=== PATIENT | male | born 1950 | race Caucasian/White ===

== ENCOUNTER 2019-09-30 20:55 | Observation (INO) | payer MEDICARE, SELFPAY ==
[2019-09-30] VITALS (7 sets, daily range): BP systolic 162–201; BP diastolic 87–112; PULSE 83–97; RESP 16–20; TEMP 36–36.1; O2SAT 96–100; BMI 25.6
--- NOTE | ~2019-09-30 | XR_ITS ---
EXAMINATION: XR chest 2V EXAM DATE: 09/30/2019 21:47 INDICATION: Midsternal chest pain and high blood pressure. TECHNIQUE: Frontal and lateral projections of the chest obtained and reviewed. Comparison is made to prior examination from 02/13/2019. FINDINGS: Sternotomy wires are present without findings to suggest sternal dehiscence. The lungs are clear. There are no pleural effusions. The cardiomediastinal silhouette is within normal limits. There is no pneumothorax suspected. There are mild bony degenerative changes. Cervical fusion hardwa re. IMPRESSION: No acute cardiopulmonary findings. Reviewed, dictated and finalized at location [facility]. [facility]
--- NOTE | 2019-09-30 21:10 | ED.GENADULT ---
HPI - General Adult General Chief complaint: Unspecified Stated complaint: high bp Time Seen by Provider: 09/30/19 21:10 Source: patient and family () Mode of arrival: ambulatory Limitations: no limitations History of Present Illness HPI narrative: A 69 y/o male presents to the ED with c/o high BP. Per , pt's BP has become increasingly higher over the past couple weeks and was measured to be 199/129 at his pain management appointment this morning. Pt's BP was 171/116 on 09/25/19, 166/95 the previous week, and 170/105 the week before that. Pt normally checks his BP everyday. Pt is on Carvedilol and Clonidine and manages his BP with Dr. Kaba. Pt reports aching and nonradiating midsternal CP today that alleviated with Nitro. Pt notes that he ran out of his pain medication a couple days ago. He denies SOB, dizziness, numbness/tingling, vision changes, hearing changes, diarrhea, dysuria, and recently starting any new medications. Associated symptoms: chest pain (midsternal (resolved)) Treatments prior to arrival: other (Nitro) Related Data Home Medications Medication Instructions Recorded Confirmed atorvastatin 10 mg PO DAILY 09/30/19 09/30/19 carvedilol 12.5 mg PO BID 09/30/19 09/30/19 cholecalciferol (vitamin D3) 1,000 unit PO DAILY 09/30/19 09/30/19 cilostazol 100 mg PO BID 09/30/19 09/30/19 clonidine HCl 0.1 mg PO BID 09/30/19 09/30/19 clopidogrel 75 mg PO DAILY 09/30/19 09/30/19 escitalopram oxalate 10 mg PO DAILY 09/30/19 09/30/19 fenofibrate 160 mg PO DAILY 09/30/19 09/30/19 fluticasone propion-salmeterol 2 inh INHALATION PRN PRN 09/30/19 09/30/19 [Advair Diskus] gabapentin 600 mg PO DAILY 09/30/19 10/01/19 hydrocodone-acetaminophen 1 tablet PO Q6H PRN 09/30/19 10/01/19 levothyroxine 0.025 mcg PO DAILY 09/30/19 10/01/19 pantoprazole 40 mg PO DAILY 09/30/19 10/01/19 ranitidine HCl 150 mg PO DAILY 09/30/19 10/01/19 Allergies Allergy/AdvReac Type Severity Reaction Status Date / Time erythromycin base Allergy Unknown Hives Verified 03/31/19 14:06 Sulfa (Sulfonamide Allergy Rash Verified 09/30/19 21:17 Antibiotics) Review of Systems Review of Systems: All systems reviewed & are unremarkable except as noted in HPI and below Eyes: Eyes: Denies change in vision ENT: Comments: Denies: hearing changes Cardiovascular: Cardiovascular: Reports chest pain (midsternal (resolved)) Comments: Reports: high BP Respiratory: Respiratory: Denies dyspnea Gastrointestinal: Gastrointestinal: Denies diarrhea Genitourinary: Genitourinary: Denies dysuria Neurologic: Denies dizziness and Denies numbness PMFSH Past Medical History Medical History Afib Anxiety Chronic kidney disease, stage 4 (severe) COPD (chronic obstructive pulmonary disease) 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 DDD (degenerative disc disease) Dementia Depression Foot fracture bilateral GERD (gastroesophageal reflux disease) GI bleed Hepatitis C HTN (hypertension) Hyperlipidemia Hypothyroid Kidney stone Peripheral neuropathy Pneumonia Seizure Sleep apnea Stage 3 chronic kidney disease Surgical History Surgical History History of appendectomy Hx of fusion of cervical spine Family History Family History Father Diabetes mellitus Hypertension Family history of cardiovascular disease Mother Hypertension Family history of cardiovascular disease Sibling Family history of cardiovascular disease Social History Social History Smoking packs per day: 1 Smoking cigarettes per day: 20.0 Years smoked: 50 Smoking pack-years: 50.00 Smoking status: Current every day smoker Tobacco type: cigarettes Second hand tobacco smoke exposure: No Alcohol intake: never Substance use: never Substance use ty
--- NOTE | 2019-09-30 21:14 | ECG_ITS ---
Measurements Intervals [place] Rate: 89 P: 60 [place]: 158 QRS: -15 QRSD: 114 T: 56 QT: 356 QTc: 434 Interpretive Statements SINUS RHYTHM INTRAVENTRICULAR CONDUCTION DELAY LEFT VENTRICULAR HYPERTROPHY AND ST-T CHANGE BASELINE WANDER- I, II, AVR, AVL, AVF, V5-V6 BORDERLINE ECG Electronically Signed On 10-01-2019 7:44:47 GENERAL REPAIR MECHANIC by Magdiel Edwards D.O.
[2019-09-30 21:32] LABS: Basophils Absolute Auto 0.1 K/mm3 (0.0-0.1); Basophils Percent Auto 1.1 % (0.2-1.2); Eosinophils Absolute Auto 0.1 K/mm3 (0-0.3); Eosinophils Percent Auto 1.8 % (0-4.4); Hematocrit 40.8 % (42.0-52.0); Hemoglobin 12.9 g/dL (14.0-18.0); Immature Granulocyte Absolute 0.05 K/mm3 (0.00-0.031); Immature Granulocyte Percent A 0.8 % (0-0.5); Lymphocytes Absolute Auto 2.07 K/mm3 (0.9-3.2); Lymphocytes Percent Auto 31.2 % (18.3-44.2); Mean Corpuscular HGB Conc 31.6 g/dl (32-36); Mean Corpuscular Hemoglobin 29.8 pg (26-34); Mean Corpuscular Volume 94.2 fl (80-100); Mean Platelet Volume 11.9 fl (7.4-10.4); Monocytes Absolute Auto 0.8 K/mm3 (0.1-0.6); Monocytes Percent Auto 11.8 % (2.6-8.5); Neutrophils Absolute Auto 3.5 K/mm3 (1.3-6.7); Neutrophils Percent Auto 53.3 % (45.5-73.1); Platelet Count Result 258 k/mm3 (150-375); Red Blood Count 4.33 M/mm3 (4.6-6.20); Red Cell Distribution Width 16.9 % (11.5-14.5); White Blood Count 6.6 K/mm3 (4.5-10.0)
[2019-09-30] MEDS: hydrALAZINE HCL 20 MG/ML VIAL 10 MG IV PUSH (21:32)
[2019-09-30 21:41] LABS: INR 0.9; Prothrombin Time 11.7 Seconds (11.1-14.7)
[2019-09-30 21:42] LABS: Partial Thromboplastin Time 31.5 SECONDS (22.3-36.8)
[2019-09-30 21:43] LABS: Blood Urea Nitrogen 37 mg/dL (9-20); Calcium 9.2 mg/dL (8.4-10.2); Carbon Dioxide 22 mmol/L (22-30); Chloride 107 mmol/L (98-107); Estimated Glomerular Filt Rate 27; Glucose 108 mg/dL (75-110); Potassium 4.5 mmol/L (3.4-5.0); Sodium 139 mmol/L (137-145)
[2019-09-30 21:54] LABS: Troponin I < 0.012 ng/mL (0.000-0.034)
--- NOTE | 2019-09-30 23:57 | PM.IMHP ---
H&P: HPI History of Present Illness Chief complaint: chest pain,uncontrolled hypertension Narrative: This is a pleasant 69-year-old male with known history of paroxysmal atrial fibrillation on chronic Eliquis therapy, coronary artery disease status post CABG x3 status post 3. Stents who presented to the hospital with a complaint of elevated blood pressure and chest pain that started this evening. The patient mentions that he has had elevated blood pressure for the past week and that he has been compliant with his home blood pressure medications. Tonight the patient was laying on the couch watching television when suddenly he started to experience midsternal chest pain that did not radiate anywhere. He did not have any associated symptoms of nausea, vomiting, diaphoresis, shortness of breath, or dizziness. Patient's chest pain lasted for about 45 minutes before went away he did not take any medications for it. After dinner the patient did experience 2 hours of global headache which resolved on its own. On arrival to the emergency room the patient was found to be severely hypertensive and was also complaining of back pain. Patient has not had any recurrence of his chest pain. On further questioning he does admit to me that he ran out of his pain medications for his chronic back pain on Saturday. The patient recently had to drive for a and mentions he had to take extra doses of his usual home pain medication because of the extra back pain that he suffered during his drive. The patient does admit to smoking 1 pack of cigarettes daily and continues to do so despite having coronary artery bypass grafting done. The patient's last cardiac angiogram was over 5 years ago. Tonight he denies any other significant symptoms and is only complaining of ongoing back pain. The patient is known to see Dr. Kaba for Cardiology. Patient denies shortness of breath, fevers, chills, cough, abdominal pain, dizziness, dysuria, hematuria, diarrhea, rectal bleeding, or worsening lower extremity swelling. No other complaints at this time. In the ER tonight the patient has been treated with IV hydralazine and continues to be hypertensive. We been asked admit the patient to the hospital for cardiac rule out and his uncontrolled hypertension. Review of Systems Review of Systems: All systems reviewed & are unremarkable except as noted in HPI and below PMFSH Past Medical History Medical History Afib Anxiety Chronic kidney disease, stage 4 (severe) COPD (chronic obstructive pulmonary disease) 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 DDD (degenerative disc disease) Dementia Depression Foot fracture bilateral GERD (gastroesophageal reflux disease) GI bleed Hepatitis C HTN (hypertension) Hyperlipidemia Hypothyroid Kidney stone Peripheral neuropathy Pneumonia Seizure Sleep apnea Stage 3 chronic kidney disease Surgical History Surgical History History of appendectomy Hx of fusion of cervical spine Family History Family History Father Diabetes mellitus Hypertension Family history of cardiovascular disease Mother Hypertension Family history of cardiovascular disease Sibling Family history of cardiovascular disease Social History Social History Smoking packs per day: 1 Smoking cigarettes per day: 20.0 Years smoked: 50 Smoking pack-years: 50.00 Smoking status: Current every day smoker Tobacco type: cigarettes Second hand tobacco smoke exposure: No Alcohol intake: never Substance use: never Substance use type: does not use Gender identity (if verbalized by the patient): Male Spiritual care concerns: No Meds Home Medications and Allergies Home Medications Medication Instructions
--- NOTE | 2019-09-30 23:57 | ADMGEN ---
This patient, Jaylan Levy, was admitted to IMU Room 213-01. Patient/family oriented to hospital policies and general routines including ID bracelet, bed and alarms, visiting hours, pain management, procedures, bathroom and other care routines, personal items, smoking policy, room service/diet, and visiting hours. Valuables list has been completed. Information on how to activate the Rapid Response Team has been discussed. Patient/Family are encouraged to report perceived risks to care and to ask questions if they do not understand what they are told or what they should do.
[2019-10-01] VITALS (13 sets, daily range): BP systolic 155–181; BP diastolic 81–99; PULSE 83–105; RESP 18–20; TEMP 36.2–36.7; O2SAT 93–99
--- NOTE | 2019-10-01 | ECHO_ITS ---
Patient Info Name: Jaylan Levy Age: 69 years : 1950 Gender: Male Ht: 68 in Wt: 167 lbs BSA: 1.92 m2 HR: 92 bpm BP: 181 / 91 mmHg Heart Rhythm: Sinus Rhythm Technical Quality: Good Exam Date: 10/01/2019 9:40 AM Exam Location: [facility] Patient Status: Inpatient Admit Date: 09/30/2019 Staff Ordering Physician: Alejandro Oakes MD Hardwood Faller: Tim Mauricio, MAREK, RT Attending Provider: Jaylan Schreiber MD Referring Physician: Violette LEMON; Exam Type: CA echo doppler color flow Study Info Indications R07.89 - Other chest pain Complete two-dimensional, color flow and Doppler transthoracic echocardiogram is performed. Summary 1. Normal left ventricular size with moderate concentric left ventricular hypertrophy. There is moderate hypokinesis of the inferoseptal wall extending to the apex as well as some hypokinesis of the inferolateral wall. Diastolic dysfunction grade 1 is present. Estimated ejection fraction is 55-60%. Global longitudinal strain is-14%, moderately low, consistent with early systolic dysfunction. 2. Abnormal septal motion due to bundle branch block. 3. 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 4. Unable to determine pulmonary artery pressure with this study. 5. NSR. Left Ventricle Normal left ventricular size with moderate concentric left ventricular hypertrophy. There is moderate hypokinesis of the inferoseptal wall extending to the apex as well as some hypokinesis of the inferolateral wall. Diastolic dysfunction grade 1 is present. Estimated ejection fraction is 55-60%. Global longitudinal strain is-14%, moderately low, consistent with early systolic dysfunction. Left ventricular chamber dimension is normal. Left ventricular systolic function is mildly reduced, estimated at 55-60%. There is moderately increased left ventricular wall thickness. Left ventricular septal wall motion is abnormal with septal motion related to bundle branch block. The left ventricular diastolic function is grade I diastolic dysfunction. Global longitudinal strain is moderately elevated at 14 %. Right Ventricle Right ventricular chamber dimension is normal. Right ventricular systolic function is normal. Left Atria Left atrial chamber dimension is mildly enlarged. Right Atria Right atrial chamber dimension is normal. 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 Aortic Valve The aortic valve is trileaflet. There is mild aortic valve sclerosis. There is no aortic valve stenosis. There is no aortic valve regurgitation. Pulmonic Valve The pulmonic valve is normal. There is no pulmonic valve stenosis. There is trace pulmonic regurgitation. Mitral Valve The mitral valve has normal leaflets. There is no mitral valve stenosis. There is no mitral valve regurgitation. Tricuspid Valve The tricuspid valve leaflets are normal. There is no significant tricuspid valve stenosis. There is mild tricuspid valve regurgitation. No pulmonary hypertension, estimated pulmonary arterial systolic pressure is Empty. Pericardium/Pleural The pericardium appears normal. There is no pericardial effusion. Inferior Vena Cava Normal inferior vena cava with >50% collapse upon inspiration consistent with Empty right atrial pressure, Empty. Aorta The aortic root size at the sinus of Valsalva is normal. The prox ascending aorta size is normal. There is mild aortic atherosclerosis. Left Ventricular Ou
[2019-10-01] MEDS: hydrALAZINE HCL 20 MG/ML VIAL 10 MG IV PUSH (00:27)
[2019-10-01 00:58] LABS: Troponin I < 0.012 ng/mL (0.000-0.034)
[2019-10-01 04:12] LABS: Basophils Absolute Auto 0.1 K/mm3 (0.0-0.1); Eosinophils Absolute Auto 0.1 K/mm3 (0-0.3); Eosinophils Percent Auto 1.7 % (0-4.4); Hematocrit 41.4 % (42.0-52.0); Hemoglobin 13.3 g/dL (14.0-18.0); Immature Granulocyte Absolute 0.06 K/mm3 (0.00-0.031); Immature Granulocyte Percent A 0.8 % (0-0.5); Lymphocytes Absolute Auto 2.45 K/mm3 (0.9-3.2); Lymphocytes Percent Auto 33.8 % (18.3-44.2); Mean Corpuscular HGB Conc 32.1 g/dl (32-36); Mean Corpuscular Hemoglobin 29.6 pg (26-34); Mean Corpuscular Volume 92.2 fl (80-100); Monocytes Absolute Auto 0.8 K/mm3 (0.1-0.6); Monocytes Percent Auto 10.5 % (2.6-8.5); Neutrophils Absolute Auto 3.8 K/mm3 (1.3-6.7); Neutrophils Percent Auto 52.2 % (45.5-73.1); Platelet Count Result 254 k/mm3 (150-375); Red Blood Count 4.49 M/mm3 (4.6-6.20); Red Cell Distribution Width 16.8 % (11.5-14.5); White Blood Count 7.3 K/mm3 (4.5-10.0)
[2019-10-01 04:26] LABS: Blood Urea Nitrogen 32 mg/dL (9-20); Calcium 9.6 mg/dL (8.4-10.2); Carbon Dioxide 22 mmol/L (22-30); Chloride 106 mmol/L (98-107); Estimated CRCL calculation 28 ml/min; Estimated Glomerular Filt Rate 29; Glucose 96 mg/dL (75-110); Magnesium 1.7 mg/dL (1.6-2.3); Potassium 3.9 mmol/L (3.4-5.0); Sodium 139 mmol/L (137-145)
[2019-10-01 04:35] LABS: Troponin I 0.013 ng/mL (0.000-0.034)
[2019-10-01] MEDS: LEVOTHYROXINE SODIUM 25 MCG TABLET PO (05:16)
[2019-10-01] MEDS: LABETALOL HCL INJ 100 MG/20 ML VIAL 10 MG IV PUSH (05:16)
[2019-10-01 05:43] LABS: Add Urine Microscopic? NO; Appearance Urine Clear (Clear); Bilirubin Urine Negative (Negative); Blood Urine Negative (Negative); Color Urine Colorless (Yellow); Glucose Urine UA Negative (Negative); Ketones Urine Negative (Negative); Leukocyte Esterase Ur Negative LEU/UL (NEGATIVE); Nitrate Urine Negative (Negative); Protein Urine Negative (Negative); Specific Grav Ur 1.011 (1.001-1.035); Urobilinogen Urine Negative mg/dL (<2.0)
[2019-10-01 05:51] LABS: Amphetamine Screen Urine Negative (Negative); Barbiturate Screen Urine Negative (Negative); Benzodiazepines Screen Urine Negative (Negative); Cannabinoid Screen Urine Negative (Negative); Cocaine Screen Urine Negative (Negative); Methadone Screen Urine Negative (Negative); Opiate Screen Urine Positive (Negative); Phencyclidine Screen Urine Negative (Negative)
[2019-10-01] MEDS: CILOSTAZOL 100 MG TABLET PO (07:38)
[2019-10-01 09:13] LABS: D Dimer 0.72 ug/mL (<0.48)
[2019-10-01] MEDS: PANTOPRAZOLE 40 MG TABLET PO (09:16)
[2019-10-01] MEDS: CLOPIDOGREL BISULFATE 75 MG TABLET PO (09:16)
[2019-10-01] MEDS: ATORVASTATIN 10 MG TABLET PO (09:16)
[2019-10-01] MEDS: FAMOTIDINE 20 MG TABLET PO (09:16)
[2019-10-01] MEDS: CHOLECALCIFEROL 1,000 UNIT TABLET 1000 UNITS PO (09:16)
[2019-10-01] MEDS: GABAPENTIN 300 MG CAPSULE 600 MG PO (09:17)
[2019-10-01] MEDS: ESCITALOPRAM OXALATE 10 MG TABLET PO (09:17)
[2019-10-01] MEDS: CLONIDINE HCL 0.1 MG TABLET PO (09:17)
[2019-10-01] MEDS: carvediloL 12.5 MG TABLET PO (09:18)
--- NOTE | 2019-10-01 09:55 | PM.DS ---
DS: Diagnosis Admitting Diagnosis Admitting Diagnosis: Hypertensive urgency DS: Summary Time Spent with Patient Time attestation: Total time spent providing and/or coordinating discharge services: DS: Data Data Completed and Pending Labs on day of discharge: Labs from last 24 hours 10/01/19 10/01/19 10/01/19 08:53 05:15 05:15 WBC RBC Hgb Hct MCV MCH MCHC RDW Plt Count MPV Immature Gran % (Auto) Neut % (Auto) Lymph % (Auto) [place] % (Auto) Eos % (Auto) Baso % (Auto) Lymph # (Auto) [place] # (Auto) Eos # (Auto) Baso # (Auto) Abs Immat Gran (auto) Absolute Neuts (auto) Absolute Nucleated RBC Nucleated RBC % PT INR APTT D-Dimer 0.72 H Sodium Potassium Chloride Carbon Dioxide BUN Creatinine Estim Creat Clear Calc Estimated GFR Glucose Calcium Magnesium Troponin I Urine Color Colorless Urine Appearance Clear Urine pH 6.0 Ur Specific [place] 1.011 Urine Protein Negative Urine Glucose (UA) Negative Urine Ketones Negative Ur Blood (Man) Negative Urine Nitrate Negative Urine Bilirubin Negative Urine Urobilinogen Negative Ur Leukocyte Esterase Negative Urine Opiates Screen Positive A Urine Methadone Screen Negative Ur Barbiturates Screen Negative Ur Phencyclidine Scrn Negative Ur Amphetamine Screen Negative U Benzodiazepines Scrn Negative Urine Cocaine Screen Negative U Cannabinoids Screen Negative 10/01/19 10/01/19 10/01/19 03:37 03:37 03:37 WBC 7.3 RBC 4.49 L Hgb 13.3 L Hct 41.4 L MCV 92.2 MCH 29.6 MCHC 32.1 RDW 16.8 H Plt Count 254 MPV 12.0 H Immature Gran % (Auto) 0.8 H Neut % (Auto) 52.2 Lymph % (Auto) 33.8 [place] % (Auto) 10.5 H Eos % (Auto) 1.7 Baso % (Auto) 1.0 Lymph # (Auto) 2.45 [place] # (Auto) 0.8 H Eos # (Auto) 0.1 Baso # (Auto) 0.1 Abs Immat Gran (auto) 0.06 H Absolute Neuts (auto) 3.8 Absolute Nucleated RBC 0.0 Nucleated RBC % 0.0 PT INR APTT D-Dimer Sodium 139 Potassium 3.9 Chloride 106 Carbon Dioxide 22 BUN 32 H Creatinine 2.30 H Estim Creat Clear Calc 28 Estimated GFR 29 L Glucose 96 Calcium 9.6 Magnesium 1.7 Troponin I 0.013 Urine Color Urine Appearance Urine pH Ur Specific [place] Urine Protein Urine Glucose (UA) Urine Ketones Ur Blood (Man) Urine Nitrate Urine Bilirubin Urine Urobilinogen Ur Leukocyte Esterase Urine Opiates Screen Urine Methadone Screen Ur Barbiturates Screen Ur Phencyclidine Scrn Ur Amphetamine Screen U Benzodiazepines Scrn Urine Cocaine Screen U Cannabinoids Screen 10/01/19 09/30/19 09/30/19 00:26 21:27 21:27 WBC RBC Hgb Hct MCV MCH MCHC RDW Plt Count MPV Immature Gran % (Auto) Neut % (Auto) Lymph % (Auto) [place] % (Auto) Eos % (Auto) Baso % (Auto) Lymph # (Auto) [place] # (Auto) Eos # (Auto) Baso # (Auto) Abs Immat Gran (auto) Absolute Neuts (auto) Absolute Nucleated RBC Nucleated RBC % PT 11.7 INR 0.9 APTT 31.5 D-Dimer Sodium 139 Potassium 4.5 Chloride 107 Carbon Dioxide 22 BUN 37 H Creatinine 2.40 H Estim Creat Clear Calc Not Reportable Estimated GFR 27 L Glucose 108 Calcium 9.2 Magnesium Troponin I < 0.012 < 0.012 Urine Color Urine Appearance Urine pH Ur Specific [place] Urine Protein Urine Glucose (UA) Urine Ketones Ur Blood (Man) Urine Nitrate Urine Bilirubin Urine Urobilinogen Ur Leukocyte Esterase Urine Opiates Screen Urine Methadone Screen Ur Barbiturates Screen Ur Phencyclidine Scrn Ur Amphetamine Screen U Benzodiazepines Scrn Urine Cocaine Screen U Cannabino
--- NOTE | 2019-10-01 15:55 | PM.IMPN ---
Subjective Date/time seen: 10/01/19 15:55 Interval history: Admitted 09/30 with hypertensive urgency and chest pain and headache. BP improved with hydralazine, labetalol, and analgesics. He was out of his norco 10-325 for 3 days. He had used extra after a long round trip drive. He denied palpitations, sob, edema, dizziness, sweats. No further chest pain. Review of Systems Review of Systems: All systems reviewed & are unremarkable except as noted in HPI and below Exam Narrative: Exam Narrative: HEENT: EOMI, PERRL, pharyngeal mucosa pink and intact NECK: No JVD CHEST: Clear to auscultation. Normal effort. HEART: NL S1/S2, regular, no murmur ABDOMEN: BS+, soft, nontender, no mass, no bruits EXTREMITIES: No cyanosis, edema, or clubbing NEUROLOGIC: CN intact and symmetric to inspection. MUSCULOSKELETAL: Tone and strength symmetric. PSYCH: Alert. Oriented to person, place, and time. Objective Data Vital Signs Vital Signs: Vital Signs - 24 hr 09/30/19 20:58 09/30/19 21:10 09/30/19 21:15 Temperature 96.8 F L Pulse Rate 84 83 86 Respiratory Rate 16 18 Blood Pressure 184/93 H 201/99 H Pulse Oximetry 100 99 09/30/19 22:01 09/30/19 22:50 09/30/19 23:20 Temperature Pulse Rate 88 94 90 Respiratory Rate 18 18 18 Blood Pressure 162/88 H 174/87 H 172/89 H Pulse Oximetry 98 99 98 09/30/19 23:45 10/01/19 00:00 10/01/19 01:40 Temperature 96.9 F L 97.1 F L Pulse Rate 97 88 95 Respiratory Rate 20 20 20 Blood Pressure 171/112 H 171/81 H Pulse Oximetry 96 96 93 10/01/19 02:00 10/01/19 03:56 10/01/19 04:00 Temperature 97.6 F Pulse Rate 98 99 99 Respiratory Rate 20 20 Blood Pressure 181/91 H Pulse Oximetry 98 98 10/01/19 05:16 10/01/19 05:40 10/01/19 08:00 Temperature 98.1 F Pulse Rate 98 96 96 Respiratory Rate 18 Blood Pressure 155/94 H Pulse Oximetry 98 10/01/19 09:18 10/01/19 10:00 10/01/19 12:00 Temperature 98 F Pulse Rate 99 105 H 98 Respiratory Rate 18 Blood Pressure 166/99 H Pulse Oximetry 99 Intake/Output Intake/Output: Intake & Output 09/28/19 09/29/19 09/30/19 10/01/19 23:59 23:59 23:59 23:59 Intake Total 440 Output Total 400 Balance 40 Meds/Results Medications: Active Medications Generic Name Dose Route Start Last Admin Trade Name Freq PRN Reason Stop Dose Admin Acetaminophen 650 mg 09/30/19 22:57 Tylenol Tablet PO Q4H PRN Mild Pain (1-3) or Fever Hydrocodone Bitart/Acetaminophen 1 tab 10/01/19 06:18 10/01/19 12:05 [place] 10-325 Mg PO 1 tab Q6H PRN Administration Pain Rated 7-10 Atorvastatin Calcium 10 mg 10/01/19 09:00 10/01/19 09:16 Lipitor PO 10 mg DAILY YASMANI Administration Carvedilol 12.5 mg 10/01/19 09:00 10/01/19 09:18 Coreg PO 12.5 mg Q12HR YASMANI Administration Cilostazol 100 mg 10/01/19 07:30 10/01/19 07:38 Pletal PO 100 mg 0730,1630 YASMANI Administration Clonidine HCl 0.1 mg 10/01/19 09:00 10/01/19 09:17 Catapres PO 0.1 mg BID YASMANI Administration Clopidogrel Bisulfate 75 mg 10/01/19 09:00 10/01/19 09:16 Plavix PO 75 mg DAILY YASMANI Administration Escitalopram Oxalate 10 mg 10/01/19 09:00 10/01/19 09:17 Lexapro PO 10 mg DAILY YASMANI Administration Famotidine 20 mg 10/01/19 09:00 10/01/19 09:16 Pepcid PO 20 mg DAILY YASMANI Administration Gabapentin 600 mg 10/01/19 09:00 10/01/19 09:17 Neurontin PO 600 mg DAILY YASMANI Administration Hydralazine HCl 10 mg 09/30/19 23:37 10/01/19 00:27 Apresoline Hcl Inj IV PUSH 10 mg Q8H PRN Administration see comments Labetalol HCl 10 mg 09/30/19 23:36 10/01/19 05:16 Normodyne Inj IV PUSH 10 mg ONCE PRN Administration see comments Levothyroxine Sodium 25 mcg 10/01/19 06:30 10/01/19 05:16 Synthroid PO 25 mcg DAILY@0630 YASMANI Administration Morphine Sulfate 4 mg 09/30/19 22:57 Morphine Sulfate Inj IV PUSH Q2H PRN Pain Rate
--- NOTE | 2019-10-01 16:04 | PM.DS ---
DS: Diagnosis Admitting Diagnosis Admitting Diagnosis: Hypertensive urgency Discharge Diagnosis (1) Hypertensive urgency: Code(s): I16.0 - Hypertensive urgency Status: Acute Assessment and Plan: Controlled after IV hydralazine and labetalol and analgesics. Home with analgesics and home bp regimen. (2) Chest pain: Qualifiers: Chest pain type: unspecified Qualified Code(s): R07.9 - Chest pain, unspecified Code(s): R07.9 - Chest pain, unspecified Status: Acute Assessment and Plan: Clinically due to hypertensive urgency No ACS He passed a stress test with his cardiology, Dr. Kaba, about 6 months ago. (3) Chronic low back pain: Qualifiers: Back pain laterality: unspecified Sciatica presence: unspecified whether sciatica present Qualified Code(s): M54.5 - Low back pain; G89.29 - Other chronic pain Code(s): M54.5 - Low back pain; G89.29 - Other chronic pain Status: Chronic Assessment and Plan: Needs 5 days of analgesic for home so that he can get refill from pain management Percocet 5-325 q 6h prn. #20 (4) Chronic kidney disease, stage 4 (severe): Code(s): N18.4 - Chronic kidney disease, stage 4 (severe) Status: Chronic Assessment and Plan: Patient's kidney function is likely at baseline. (5) Chronic GERD: Code(s): K21.9 - Gastro-esophageal reflux disease without esophagitis Status: Chronic Assessment and Plan: Continue Protonix. (6) Acquired hypothyroidism: Code(s): E03.9 - Hypothyroidism, unspecified Status: Chronic Assessment and Plan: Continue levothyroxine. (7) PAD (peripheral artery disease): Code(s): I73.9 - Peripheral vascular disease, unspecified Status: Chronic Assessment and Plan: Continue cilostazol. (8) PTSD (post-traumatic stress disorder): Code(s): F43.10 - Post-traumatic stress disorder, unspecified Status: Chronic (9) Paroxysmal atrial fibrillation: Code(s): I48.0 - Paroxysmal atrial fibrillation Status: Chronic Assessment and Plan: Currently in normal sinus rhythm. Continue rate control with beta-radha. Continue Eliquis for anticoagulation. (10) Tobacco dependence: Code(s): F17.200 - Nicotine dependence, unspecified, uncomplicated Status: Chronic Assessment and Plan: He was counseled on smoking cessation during his stay DS: Summary Hospital Course Reason for hospitalization: chest pain, uncontrolled bp Hospital Course: Admitted 09/30 with hypertensive urgency and chest pain and headache. BP improved with hydralazine, labetalol, and analgesics. He was out of his norco 10-325 for 3 days. He had used extra after a long round trip drive. He denied palpitations, sob, edema, dizziness, sweats. No further chest pain. Troponins negative x 3. EKG w/o acute changes. Echo with LVEF 55-50% with grade I diastolic dysfunction. Status at Discharge Functional status at discharge: independent ambulation Overall status at discharge: patient is back to baseline Time Spent with Patient Time attestation: Total time spent providing and/or coordinating discharge services: Time spent: Greater than 30 minutes Exam Narrative: Exam Narrative: HEENT: EOMI, PERRL, pharyngeal mucosa pink and intact NECK: No JVD, adenopathy, or thyromegaly CHEST: Clear to auscultation. Normal effort. HEART: NL S1/S2, regular, no murmur ABDOMEN: BS+, soft, nontender, no mass, no bruits EXTREMITIES: No cyanosis, edema, or clubbing NEUROLOGIC: CN intact and symmetric to inspection. MUSCULOSKELETAL: Tone and strength symmetric. PSYCH: Alert. Oriented to person, place, and time. DS: Data Data Completed and Pending Labs on day of discharge: Labs from last 24 hours 10/01/19 10/01/19 10/01/19 08:53 05:15 05:15 WBC RBC Hgb Hct MCV MCH MCHC RDW Plt Count MPV Immature Gran % (Auto) Neut
== END 2019-10-01 16:45 | disposition home or self-care (01) ==
LOC: ANHED 22:56 → ANHIMU 10-01 02:42
PROVIDERS: Admitting Provider Family Medicine; Emergency Provider Emergency Medicine; PCP Family Medicine; Visit Provider Internal Medicine
DX: I16.0 Hypertensive urgency (principal); I12.9 Hypertensive chronic kidney disease with stage 1 through stage 4 chronic kidney disease, or unspecified chronic kidney disease; N18.4 Chronic kidney disease, stage 4 (severe); M54.5 Low back pain; G89.29 Other chronic pain; K21.9 Gastro-esophageal reflux disease without esophagitis; E03.9 Hypothyroidism, unspecified; I73.9 Peripheral vascular disease, unspecified; F43.10 Post-traumatic stress disorder, unspecified; I48.0 Paroxysmal atrial fibrillation; F17.210 Nicotine dependence, cigarettes, uncomplicated; J44.9 Chronic obstructive pulmonary disease, unspecified; F03.90 Unspecified dementia, unspecified severity, without behavioral disturbance, psychotic disturbance, mood disturbance, and anxiety; G62.9 Polyneuropathy, unspecified; G47.30 Sleep apnea, unspecified; Z79.01 Long term (current) use of anticoagulants; I25.10 Atherosclerotic heart disease of native coronary artery without angina pectoris; Z95.1 Presence of aortocoronary bypass graft; Z95.5 Presence of coronary angioplasty implant and graft; Z98.1 Arthrodesis status
CPT/HCPCS: 36415; 71046; 80048; 80307; 81003; 83735; 84484; 85025; 85380; 85610; 85730; 93005; 93306; 96374; 96375; 96376; 99285; A9270; G0378; J0360

== ENCOUNTER → 2021-08-25 09:20 | Outpatient (CLI) | payer MEDICARE, SELFPAY ==
--- NOTE | ~2021-08-25 | CT_ITS ---
EXAMINATION: CT lung screening DATE: 08/25/2021 09:32 INDICATION: Personal history of nicotine dependence TECHNIQUE: Computed tomography (CT) of the chest was performed without intravenous contrast. The dose -length product was 83.67 mGy-cm. Automated exposure control and iterative reconstruction technique w ere employed. COMPARISON: Chest x-ray dated 09/30/2019 FINDINGS: There are peripheral interstitial infiltrates with interlobular septal thickening bilateral ly, with a pattern consistent with usual interstitial pneumonia. No thoracic lymphadenopathy. There i s atherosclerosis of the aorta and coronary arteries. Status post median sternotomy for CABG. No sign ificant pleural or pericardial effusion. There is a 4 mm right upper lobe nodule, axial image 39. The re is mild emphysema. There is dependent atelectasis. No endobronchial lesions. IMPRESSION: 1. Lung-RADS category 2: Benign appearance or behavior. Continue annual screening with noncontrast lo w-dose chest CT in 12 months. Reviewed, dictated and finalized at location A. AL HEALTH TECHNICIAN IMPRESSION: 1. Lung-RADS category 2: Benign appearance or behavior. Continue annual screeni ng with noncontrast low-dose chest CT in 12 months.
== END ==
PROVIDERS: PCP Nurse Practitioner Family; Visit Provider Nurse Practitioner Family
DX: Z12.2 Encounter for screening for malignant neoplasm of respiratory organs (principal); Z87.891 Personal history of nicotine dependence
CPT/HCPCS: 71271

== ENCOUNTER 2021-09-27 12:22 | Emergency (ER) | payer MEDICARE, SELFPAY | END 2021-09-28 00:40 | disposition left against medical advice (07) | LOC: ANHED 12:43 | PROVIDERS: PCP Nurse Practitioner Family | DX: Z53.21 Procedure and treatment not carried out due to patient leaving prior to being seen by health care provider (principal) | CPT/HCPCS: 99199 ==

== ENCOUNTER 2021-09-29 11:30 | Outpatient (CLI) | payer MEDICARE, SELFPAY ==
[2021-09-29 12:08] LABS: Basophils Absolute Auto 0.1 K/mm3 (0.0-0.1); Basophils Percent Auto 0.7 % (0.2-1.2); Eosinophils Absolute Auto 0.1 K/mm3 (0-0.3); Eosinophils Percent Auto 1.1 % (0-4.4); Hematocrit 41.6 % (42.0-52.0); Hemoglobin 14.1 g/dL (14.0-18.0); Immature Granulocyte Absolute 0.12 K/mm3 (0.00-0.031); Immature Granulocyte Percent A 1.5 % (0-0.5); Lymphocytes Absolute Auto 1.85 K/mm3 (0.9-3.2); Mean Corpuscular HGB Conc 33.9 g/dl (32-36); Mean Corpuscular Hemoglobin 33.7 pg (26-34); Mean Corpuscular Volume 99.3 fl (80-100); Mean Platelet Volume 11.3 fl (7.4-10.4); Monocytes Absolute Auto 0.8 K/mm3 (0.1-0.6); Neutrophils Absolute Auto 5.1 K/mm3 (1.3-6.7); Neutrophils Percent Auto 63.7 % (45.5-73.1); Platelet Count Result 356 k/mm3 (150-375); Red Blood Count 4.19 M/mm3 (4.6-6.20); Red Cell Distribution Width 15.7 % (11.5-14.5)
[2021-09-29 12:14] LABS: Add Urine Microscopic? YES; Appearance Urine Clear (Clear); Bilirubin Urine Negative (Negative); Blood Urine Negative (Negative); Color Urine Yellow (Yellow); Glucose Urine UA Negative (Negative); Ketones Urine Negative (Negative); Leukocyte Esterase Ur Negative LEU/UL (NEGATIVE); Mucus Urine Rare /lpf; Nitrate Urine Negative (Negative); Protein Urine 2+ mg/dL (Negative); RBC Urine 0-2 /hpf (0-2); Specific Grav Ur 1.019 (1.001-1.035); Urobilinogen Urine Negative mg/dL (<2.0); WBC Urine 0-3 /hpf (0-3)
[2021-09-29 12:26] LABS: Alanine Aminotransferase 24 U/L (4-50); Albumin Level 4.6 g/dL (3.5-5.1); Alkaline Phosphatase 91 U/L (38-126); Anion Gap 12 mmol/L (8-16); Aspartate Amino Transferase 64 U/L (17-59); Blood Urea Nitrogen 39 mg/dL (9-20); Calcium 10.2 mg/dL (8.4-10.2); Carbon Dioxide 17 mmol/L (22-30); Chloride 108 mmol/L (98-107); Estimated Glomerular Filt Rate 43; Glucose 116 mg/dL (65-110); Potassium 4.2 mmol/L (3.4-5.0); Sodium 137 mmol/L (137-145)
== END 2021-09-29 11:31 | disposition home or self-care (01) ==
PROVIDERS: PCP Family Medicine; Visit Provider Physician Assistant
DX: E86.0 Dehydration (principal); I13.10 Hypertensive heart and chronic kidney disease without heart failure, with stage 1 through stage 4 chronic kidney disease, or unspecified chronic kidney disease; N18.4 Chronic kidney disease, stage 4 (severe); R53.1 Weakness; R73.01 Impaired fasting glucose
CPT/HCPCS: 36415; 80053; 81001; 84443; 85025; 87086

== ENCOUNTER 2021-10-01 05:03 | Observation (INO) | payer MEDICARE, SELFPAY ==
[2021-10-01] VITALS (26 sets, daily range): BP systolic 68–124; BP diastolic 42–67; PULSE 47–76; RESP 13–20; TEMP 35.5–36.9; O2SAT 98–100; BMI 20.4
--- NOTE | ~2021-10-01 | XR_ITS ---
XR chest 1V portable 10/01/2021 05:47 Indication: Cough Procedure: AP portable chest Comparison: Comparison to multiple prior studies sequentially, with oldest reviewed study dated 07/25. Findings: Status post median sternotomy for CABG. Heart size normal. No focal air space disease, pulm onary edema, pleural effusion or suspected pneumothorax. No acute osseous abnormality. Impression: 1: No acute cardiopulmonary disease. Reviewed, dictated and finalized at location A. SCHOOL VICE PRINCIPAL Impression: 1: No acute cardiopulmonary disease.
--- NOTE | ~2021-10-01 | US_ITS ---
EXAMINATION: US carotid duplex BI DATE: 10/01/2021 13:15 INDICATION: Syncope TECHNIQUE: Grayscale, color Doppler, and pulsed Doppler images of the cervical carotid arteries were obtained. The degree of vessel stenosis is placed in one of the following categories: normal, <50%, 5 0-69%, >=70% but less than near-occlusion, near-occlusion, or total occlusion. Note that percent sten osis relative to normal distal artery lumen diameter is indirectly measured from velocity measurement s as described by Willard, et al. Radiology 2003; 229:340-346. Notes: Normal: Peak systolic velocity <125 centimeters/sec and no plaque <50%. Peak systolic velocity <125 ( EDV <40; ICA/CCA PSV ratio <2.0; used these factors only a tandem lesions or low cardiac output or co ntralateral disease) 50-69 %: PSV 125-230 (EDV 40-100; ratio 2-4) >= 70% but less than near occlusion: PSV greater than 230 (EDV > 100; ratio> 4.0) Near Occlusion: PSV that is variable; markedly narrowed lumen Occlusion: Absent flow on color/spectral Doppler and no lumen on burnett scale. COMPARISON: None. FINDINGS: RIGHT: The right common carotid artery (CCA) peak systolic velocity (PSV) is 91 cm/s. The right internal car otid artery (ICA) PSV is 132 cm/s. The right ICA end-diastolic velocity (EDV) is 14 cm/s. The right I CA/CCA PSV ratio is 1.5. The external carotid artery (ECA) PSV is 164 cm/s. There is antegrade flow i n the right vertebral artery. LEFT: The left CCA PSV is 86 cm/s. The left ICA PSV is 184 cm/s. The left ICA EDV is 22 cm/s. The left ICA/ CCA PSV ratio is 2.1. The ECA PSV is 190 cm/s. There is antegrade flow in the left vertebral artery. IMPRESSION: 1. 50-69% stenosis in the right internal carotid artery by sonographic criteria. 2. 50-69% stenosis in the left internal carotid artery by sonographic criteria. Reviewed, dictated and finalized at location A. RNAL GRINDER IMPRESSION: 1. 50-69% stenosis in the right internal carotid artery by sonographic criteria . 2. 50-69% stenosis in the left internal carotid artery by sonographic criteria.
--- NOTE | ~2021-10-01 | CT_ITS ---
EXAMINATION: CT abdomen pelvis wo con DATE: 10/01/2021 06:09 INDICATION: Generalized abdominal pain TECHNIQUE: Computed tomography (CT) of the head was performed without intravenous contrast. The dose- length product was 299.06 mGy-cm. Automated exposure control and iterative reconstruction technique w ere employed. COMPARISON: CT dated 02/13/2019 FINDINGS: There are mild chronic coarse interstitial infiltrates peripherally in the lung bases. Stat us post median sternotomy for CABG. Heart size normal. No pneumothorax. Small hiatal hernia. No signi ficant pleural or pericardial effusion. Gallbladder is present. There are vascular calcifications thr oughout the abdomen. There is atherosclerosis of the aorta without aneurysm. There is chronic granulo matous disease of the spleen. There is nonobstructive bowel gas pattern. No free air or free fluid. G allbladder is present. Normal appendix. Colonic diverticulosis without evidence for diverticulitis. T here is severe lumbar spondylosis with thoracolumbar levoscoliosis. Chronic compression deformity of T12. No ureteral stones or hydronephrosis. IMPRESSION: 1. No acute abdominal abnormality. Reviewed, dictated and finalized at location A. ERS AND ACQUISITIONS ATTORNEY
--- NOTE | ~2021-10-01 | CT_ITS ---
EXAMINATION: CT brain wo con INDICATION: Transient alteration of awareness COMPARISON: 08/19/2006 TECHNIQUE: Standard unenhanced head CT. The dose-length product (DLP) was 681.00 mGy-cm. The mA was a djusted according to patient size. Iterative reconstruction technique was employed. FINDINGS: There is no acute intraparenchymal hemorrhage. No evidence of mass lesion. No evidence of a cute infarction. There are areas of low attenuation near the right caudate and in the right quiroz ra diata. There is mild periventricular and subcortical hypodensity probably related to small vessel isc hemic disease. There is mild prominence of the sulci and ventricles related to cerebral atrophy. Intr acranial calcified cerebral atherosclerosis is noted. There are no extra-axial collections. There is no mass effect or midline shift. Changes in the globes are likely from ocular lens surgery. The visua lized sinuses and mastoid air cells are well aerated. IMPRESSION: 1. Areas of low attenuation in the right caudate and in the right quiroz radiata which could reflect subacute or chronic infarct. 2. Age related findings. Reviewed, dictated and finalized at location F. RAL LOCATION MANAGER IMPRESSION: 1. Areas of low attenuation in the right caudate and in the right quiroz radiat a which could reflect subacute or chronic infarct. 2. Age related findings.
--- NOTE | 2021-10-01 05:10 | ECG_ITS ---
Measurements Intervals [place] Rate: 54 P: 55 ID: 165 QRS: -9 QRSD: 122 T: 19 QT: 507 QTc: 484 Interpretive Statements SINUS BRADYCARDIA INTRAVENTRICULAR CONDUCTION DELAY DELAYED PRECORDIAL R/S TRANSITION LEFT VENTRICULAR HYPERTROPHY BORDERLINE ST-T WAVE ABNORMALITY- INFERIOR LEADS BASELINE ARTIFACT- I, II, III, AVR, AVL, AVF, V1-V6 BORDERLINE ECG Electronically Signed On 10-01-2021 6:15:33 DIRECTOR GROUP SALES by Magdiel Edwards D.O.
[2021-10-01] MEDS: SODIUM CHLORIDE 0.9% IV 500 ML 999 ML IV CONT (05:38)
[2021-10-01 05:39] LABS: Alanine Aminotransferase 29 U/L (4-50); Albumin Level 3.2 g/dL (3.5-5.1); Alkaline Phosphatase 62 U/L (38-126); Anion Gap 9 mmol/L (8-16); Aspartate Amino Transferase 50 U/L (17-59); Bilirubin,Total 0.8 mg/dL (0.2-1.3); Blood Urea Nitrogen 38 mg/dL (9-20); Calcium 8.7 mg/dL (8.4-10.2); Carbon Dioxide 17 mmol/L (22-30); Chloride 108 mmol/L (98-107); Estimated CRCL calculation 24 ml/min; Estimated Glomerular Filt Rate 26; Glucose 123 mg/dL (65-110); Potassium 3.9 mmol/L (3.4-5.0); Sodium 134 mmol/L (137-145)
[2021-10-01 05:43] LABS: Basophils Absolute Auto 0.1 K/mm3 (0.0-0.1); Basophils Percent Auto 0.9 % (0.2-1.2); Eosinophils Absolute Auto 0.2 K/mm3 (0-0.3); Eosinophils Percent Auto 1.8 % (0-4.4); Hemoglobin 9.8 g/dL (14.0-18.0); Immature Granulocyte Absolute 0.38 K/mm3 (0.00-0.031); Immature Granulocyte Percent A 4.1 % (0-0.5); Immature Platelet Fraction Pct 6.3 % (0.9-11.2); Lymphocytes Absolute Auto 2.17 K/mm3 (0.9-3.2); Lymphocytes Percent Auto 23.6 % (18.3-44.2); Mean Corpuscular HGB Conc 31.6 g/dl (32-36); Mean Corpuscular Hemoglobin 33.4 pg (26-34); Mean Corpuscular Volume 105.8 fl (80-100); Mean Platelet Volume 11.1 fl (7.4-10.4); Monocytes Absolute Auto 1.1 K/mm3 (0.1-0.6); Monocytes Percent Auto 11.6 % (2.6-8.5); Neutrophils Absolute Auto 5.3 K/mm3 (1.3-6.7); Nucleated Red Blood Cells Absolute Auto 0.1 K/mm3 (0.0-0.012); Nucleated Red Blood Cells Perc 0.8 % (0.0-0.2); Platelet Count Result 284 k/mm3 (150-375); Red Blood Count 2.93 M/mm3 (4.6-6.20); Red Cell Distribution Width 15.7 % (11.5-14.5); White Blood Count 9.2 K/mm3 (4.5-10.0)
[2021-10-01 05:48] LABS: Lactic Acid Reflex 1.4 mmol/L (0.7-2.1); Lipase 1910 U/L (23-300); Magnesium 1.8 mg/dL (1.6-2.3)
[2021-10-01 05:52] LABS: Troponin I 0.045 ng/mL (0.000-0.034)
[2021-10-01 05:58] LABS: NT Pro B Type Natriuretic Pept 2790 pg/mL (5-100)
--- NOTE | 2021-10-01 05:58 | PC.NURSE ---
Patient taken to CT via stretcher.
--- NOTE | 2021-10-01 06:27 | ED.GENADULT ---
HPI - General Adult General Chief complaint: Syncope Stated complaint: GLF POSSIBLE UNRESPONSIVE, LOC, 70/40BP, FLU SYMPT Time Seen by Provider: 10/01/21 05:19 History of Present Illness HPI narrative: Patient 71-year-old gentleman who presents the emergency department with chief complaint of near syncope. Patient states that today felt very lightheaded and the briefly passed out. When EMS found to he was hypotensive and was still complaining of being lightheaded upon arrival to the emergency department after receiving approximately 500 mL of normal saline the patient was starting to feel somewhat better and his pressure proved in the 70s to the 90s. Patient reported that over the last week he has been rather sick has had nausea vomiting and diarrhea. The patient states he is just recently started tolerating p.o. intake patient states that he was diagnosed with the flu recently. The patient also reports he has history of congestive heart failure but reports that is not on any diuretic medications. Patient denies blood in the stool or black tarry stool. Related Data Home Medications Medication Instructions Recorded Confirmed cholecalciferol (vitamin D3) 1,000 unit PO DAILY 09/30/19 05/31/20 cilostazol 100 mg PO BID 09/30/19 05/31/20 clopidogrel 75 mg PO DAILY 09/30/19 05/31/20 fluticasone propion-salmeterol 2 inh INHALATION PRN PRN 09/30/19 05/31/20 [Advair Diskus] gabapentin 600 mg PO DAILY 09/30/19 05/31/20 hydrocodone 10 mg-acetaminophen 1 tablet PO Q8H PRN 10/06/19 05/31/20 325 mg tablet methylcellulose 1 % eye drops % EACH EYE 10/06/19 05/31/20 cholecalciferol (vitamin D3) 1,250 1,250 mcg PO MONTHLY 06/28/20 mcg (50,000 unit) capsule Allergies Allergy/AdvReac Type Severity Reaction Status Date / Time erythromycin base Allergy Unknown Hives Verified 10/01/21 05:13 Sulfa (Sulfonamide Allergy Unknown Rash Verified 10/01/21 05:13 Antibiotics) Review of Systems Review of Systems: A 10 system review of systems was completed on the patient and is negative except for what is stated in the HPI. Nursing and ancillary documentation was reviewed. [facility] Past Medical History Medical History Afib Anxiety Chronic kidney disease, stage 4 (severe) COPD (chronic obstructive pulmonary disease) 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 DDD (degenerative disc disease) Dementia Depression Foot fracture bilateral GERD (gastroesophageal reflux disease) GI bleed Hepatitis C HTN (hypertension) Hyperlipidemia Hypothyroid Kidney stone Peripheral neuropathy Pneumonia Seborrheic keratosis Seizure Sleep apnea Stage 3 chronic kidney disease Surgical History Surgical History History of appendectomy History of bypass gastroenterostomy History of endarterectomy femoral - L Hx of fusion of cervical spine Family History Family History Father Diabetes mellitus Hypertension Family history of cardiovascular disease Mother Hypertension Family history of cardiovascular disease Sibling Family history of cardiovascular disease Social History Social History Smoking packs per day: 1 Smoking cigarettes per day: 20.0 Years smoked: 50 Smoking pack-years: 50.00 Smoking status: Current every day smoker Tobacco type: cigarettes Second hand tobacco smoke exposure: No Alcohol intake: never Substance use: never Substance use type: does not use Gender identity (if verbalized by the patient): Male Spiritual care concerns: No Exam Narrative: GENERAL: Well-appearing, well-nourished, and in no acute distress. HEAD: Normocephalic, atraumatic. EYES: PERRLA and EOMI. ENT: Nares clear, no rhinorrhea or epistaxis. Mucous membranes moist.
[2021-10-01 08:16] LABS: SARS-CoV-2 RNA PCR Negative
[2021-10-01] MEDS: SODIUM CHLORIDE 0.9% IV 1,000 ML 125 ML IV CONT ×2 (09:32→17:25)
--- NOTE | 2021-10-01 10:14 | ADMGEN ---
This patient, Jaylan Levy, was admitted to IMU Room 206-02. Patient/family oriented to hospital policies and general routines including ID bracelet, bed and alarms, visiting hours, pain management, procedures, bathroom and other care routines, personal items, smoking policy, room service/diet, and visiting hours. Information on how to activate the Rapid Response Team has been discussed. Patient/Family are encouraged to report perceived risks to care and to ask questions if they do not understand what they are told or what they should do.
[2021-10-01 10:34] LABS: Hematocrit 36.8 % (42.0-52.0)
[2021-10-01 11:01] LABS: Troponin I 0.028 ng/mL (0.000-0.034)
--- NOTE | 2021-10-01 11:16 | PM.IMHP ---
H&P: HPI History of Present Illness Date/Time: 10/01/21 11:16 Chief Complaint: Near syncopal episode Narrative: 71 years old male was admitted through the emergency room with complaints that he was having nausea and diarrhea going on for the past few days. Diarrhea gradually got better and he was able to tolerate p.o. since yesterday. According to the patient after diarrhea he was feeling really weak and he nearly passed out at home. Patient denies any chest pain or shortness of breath. No abdominal pain no nausea no vomiting at present time. No fever, no COVID. Patient denies any complaints at present time. Review of Systems Review of Systems: All systems reviewed & are unremarkable except as noted in HPI and below (the history and physical examination.) PMFSH Past Medical History Medical History Afib Anxiety Chronic kidney disease, stage 4 (severe) COPD (chronic obstructive pulmonary disease) 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 DDD (degenerative disc disease) Dementia Depression Foot fracture bilateral GERD (gastroesophageal reflux disease) GI bleed Hepatitis C HTN (hypertension) Hyperlipidemia Hypothyroid Kidney stone Peripheral neuropathy Pneumonia Seborrheic keratosis Seizure Sleep apnea Stage 3 chronic kidney disease Surgical History Surgical History History of appendectomy History of bypass gastroenterostomy History of endarterectomy femoral - L Hx of fusion of cervical spine Family History Family History Father Diabetes mellitus Hypertension Family history of cardiovascular disease Mother Hypertension Family history of cardiovascular disease Sibling Family history of cardiovascular disease Social History Social History Smoking packs per day: 0.5 Smoking cigarettes per day: 10.0 Years smoked: 50 Smoking pack-years: 25.00 Smoking status: Current every day smoker Tobacco type: cigarettes Second hand tobacco smoke exposure: No Alcohol intake: never Substance use: never Substance use type: does not use Gender identity (if verbalized by the patient): Male Spiritual care concerns: No Meds Home Medications and Allergies Home Medications Medication Instructions Recorded Confirmed Type cilostazol 100 mg PO BID 09/30/19 10/01/21 History clopidogrel 75 mg PO DAILY 09/30/19 10/01/21 History fluticasone propion-salmeterol 2 inh INHALATION PRN PRN 09/30/19 10/01/21 History [Advair Diskus] gabapentin 300 mg PO BID 09/30/19 10/01/21 History hydrocodone 10 mg-acetaminophen 1 tablet PO Q6H PRN 10/06/19 10/01/21 History 325 mg tablet atorvastatin 40 mg tablet 40 mg PO DAILY #90 tablet 05/04/21 10/01/21 Rx pantoprazole 40 mg tablet,delayed 40 mg PO DAILY #90 tablet 05/18/21 10/01/21 Rx release escitalopram oxalate 20 mg tablet 20 mg PO DAILY #90 tablet 08/04/21 10/01/21 Rx lisinopril 40 mg tablet 40 mg PO DAILY #30 tablet 09/06/21 10/01/21 Rx buspirone 7.5 mg tablet 7.5 mg PO BID #180 tablet 09/28/21 10/01/21 Rx clonidine HCl 0.1 mg tablet 0.1 mg PO BID #180 tablet 09/28/21 10/01/21 Rx carvedilol 25 mg PO BID 10/01/21 10/01/21 History cholecalciferol (vitamin D3) 25 mcg PO DAILY 10/01/21 10/01/21 History fenofibrate 160 mg PO DAILY 10/01/21 10/01/21 History levothyroxine 25 mcg PO 0600 10/01/21 10/01/21 History nifedipine 30 mg PO DAILY 10/01/21 10/01/21 History Allergies Allergy/AdvReac Type Severity Reaction Status Date / Time erythromycin base Allergy Unknown Hives Verified 10/01/21 05:13 Sulfa (Sulfonamide Allergy Unknown Rash Verified 10/01/21 05:13 Antibiotics) Vital Signs Vital Signs - 24 hr 10/01/21 05:03 10/01/21 05:13 10/01/21 05:43 Temperature 36.8 C Pulse Rate 57 L 76 53 L Respiratory Rate
[2021-10-01] MEDS: ESCITALOPRAM OXALATE 10 MG TABLET 20 MG PO (13:02)
[2021-10-01] MEDS: carvediloL 25 MG TABLET PO (13:02)
[2021-10-01] MEDS: ATORVASTATIN 40 MG TABLET PO (13:02)
[2021-10-01] MEDS: CHOLECALCIFEROL 1,000 UNITS TABLET 1000 UNITS PO (13:02)
[2021-10-01] MEDS: PANTOPRAZOLE SODIUM IV 40 MG VIAL IV PUSH (13:03)
[2021-10-01] MEDS: FENOFIBRATE 160 MG TABLET PO (13:03)
[2021-10-01 13:25] LABS: Hematocrit 38.5 % (42.0-52.0); Hemoglobin 12.1 g/dL (14.0-18.0)
[2021-10-01 13:43] LABS: Troponin I 0.029 ng/mL (0.000-0.034)
[2021-10-01] MEDS: GABAPENTIN 300 MG CAPSULE PO ×2 (14:39→21:02)
[2021-10-01] MEDS: lisinopriL 20 MG TABLET PO (14:40)
[2021-10-01] MEDS: NIFEdipine 30 MG TAB.ER.24 PO (14:40)
[2021-10-01] MEDS: CLOPIDOGREL BISULFATE 75 MG TABLET PO (14:40)
[2021-10-01] MEDS: cloNIDine HCL 0.1 MG TABLET PO (14:42)
[2021-10-01 15:38] LABS: Add Urine Microscopic? YES; Appearance Urine Clear (Clear); Bacteria Urine Trace /hpf; Bilirubin Urine Negative (Negative); Blood Urine Negative (Negative); Color Urine Yellow (Yellow); Glucose Urine UA Negative (Negative); Ketones Urine Negative (Negative); Leukocyte Esterase Ur Negative LEU/UL (Negative); Mucus Urine Rare /lpf; Nitrate Urine Negative (Negative); Protein Urine 2+ mg/dL (Negative); RBC Urine 0-2 /hpf (0-2); Squamous Epithelial Cell Urine Rare /hpf (Few); WBC Urine 0-3 /hpf
[2021-10-01] MEDS: cilostazoL 100 MG TABLET PO (17:23)
[2021-10-01 20:01] LABS: Hemoglobin 10.2 g/dL (14.0-18.0)
[2021-10-01] MEDS: busPIRone HCL 5 MG TABLET PO (20:57)
[2021-10-01] MEDS: busPIRone HCL 2.5 MG TABLET PO (20:57)
[2021-10-02] VITALS (8 sets, daily range): BP systolic 99–141; BP diastolic 50–62; PULSE 62–98; RESP 16–20; TEMP 36.3–36.8; O2SAT 95–98
--- NOTE | 2021-10-02 | ECHO_ITS ---
Patient Info Name: Jaylan Levy Age: 71 years : 1950 Gender: Male Ht: 70 in Wt: 142 lbs BSA: 1.78 m2 HR: 73 bpm BP: 126 / 59 mmHg Heart Rhythm: Sinus Arrhythmia Technical Quality: Fair Exam Date: 10/02/2021 7:44 AM Exam Location: [facility] Patient Status: Inpatient Admit Date: 10/01/2021 Staff Ordering Physician: Duran Dao MD Superintendent Sales: Sharon Weiss RDCS Attending Provider: Jaylon Cannon MD Referring Physician: Sylwia SOUZA; Exam Type: CA echo doppler color flow Study Info Indications - syncope Complete two-dimensional, color flow and Doppler transthoracic echocardiogram is performed. Summary 1. Complete two-dimensional, color flow and Doppler transthoracic echocardiogram is performed. 2. Left ventricular chamber dimension is normal. 3. There is mild concentric increased left ventricular wall thickness. 4. Left ventricular systolic function is normal, estimated at 55-60%. 5. Left atrial chamber dimension is mildly enlarged. 6. No significant valve abnormalities. Left Ventricle Left ventricular chamber dimension is normal. Left ventricular systolic function is normal, estimated at 55-60%. There is mild concentric increased left ventricular wall thickness. The left ventricular diastolic function is grade I diastolic dysfunction. Right Ventricle Right ventricular chamber dimension is normal. Left Atria Left atrial chamber dimension is mildly enlarged. Right Atria Right atrial chamber dimension is normal. Aortic Valve The aortic valve is trileaflet. Pulmonic Valve The pulmonic valve is not well visualized. Mitral Valve The mitral valve has normal leaflets. Tricuspid Valve The tricuspid valve leaflets are normal. Pericardium/Pleural The pericardium appears normal. Aorta The aortic root size at the sinus of Valsalva is normal. Left Ventricular Outflow Tract Name Value Normal LVOT 2D LVOT Diameter 2.1 cm LVOT Doppler LVOT Peak Gradient 4 mmHg LVOT Mean Gradient 2 mmHg LVOT VTI 19 cm LVOT VTI/AV VTI Ratio 0.8 LVOT Stroke Volume 62 ml LVOT CO 3.8 l/min LVOT CI 2.2 l/min/m2 Pulmonic Valve Name Value Normal RVOT Doppler RVOT Peak Gradient 1 mmHg PV Doppler PV Peak Gradient 3 mmHg Mitral Valve Name Value Normal MV Doppler
[2021-10-02] MEDS: SODIUM CHLORIDE 0.9% IV 1,000 ML 125 ML IV CONT (01:34)
[2021-10-02 04:17] LABS: Alanine Aminotransferase 23 U/L (4-50); Albumin Level 2.9 g/dL (3.5-5.1); Alkaline Phosphatase 68 U/L (38-126); Amylase 351 U/L (30-110); Anion Gap 7 mmol/L (8-16); Aspartate Amino Transferase 44 U/L (17-59); Bilirubin,Total 0.7 mg/dL (0.2-1.3); Blood Urea Nitrogen 30 mg/dL (9-20); Calcium 8.4 mg/dL (8.4-10.2); Carbon Dioxide 19 mmol/L (22-30); Chloride 110 mmol/L (98-107); Estimated CRCL calculation 32 ml/min; Estimated Glomerular Filt Rate 38; Glucose 109 mg/dL (65-110); Lipase 1296 U/L (23-300); Potassium 3.6 mmol/L (3.4-5.0); Sodium 136 mmol/L (137-145)
[2021-10-02 04:19] LABS: Hematocrit 31.2 % (42.0-52.0); Hemoglobin 10.3 g/dL (14.0-18.0); Mean Corpuscular Hemoglobin 33.2 pg (26-34); Mean Corpuscular Volume 100.6 fl (80-100); Mean Platelet Volume 11.2 fl (7.4-10.4); Platelet Count Result 260 k/mm3 (150-375); Red Cell Distribution Width 15.7 % (11.5-14.5); White Blood Count 8.8 K/mm3 (4.5-10.0)
[2021-10-02 04:27] LABS: Troponin I 0.031 ng/mL (0.000-0.034)
[2021-10-02 05:16] LABS: Thyroid Stimulating Hormone 0.853 uIU/mL (0.465-4.680)
[2021-10-02] MEDS: LEVOTHYROXINE SODIUM 25 MCG TABLET PO (06:15)
--- NOTE | 2021-10-02 08:53 | PM.IMPN ---
Progress Note: A&P Assessment and Plan (1) Acute kidney injury: Code(s): N17.9 - Acute kidney failure, unspecified Status: Acute Assessment and Plan: Will give IV fluids and monitor closely. (2) Elevated lipase: Code(s): R74.8 - Abnormal levels of other serum enzymes Status: Acute Assessment and Plan: CT abdomen is negative. Will repeat imaging lap in the morning. (3) Elevated troponin: Code(s): R77.8 - Other specified abnormalities of plasma proteins Status: Acute Assessment and Plan: Will trend troponin. Patient BNP is high also. Will check 2D echo and consult Cardiology. (4) Syncope: Qualifiers: Syncope type: unspecified Qualified Code(s): R55 - Syncope and collapse Code(s): R55 - Syncope and collapse Status: Acute Assessment and Plan: Most likely from dehydration, will check echo and carotid Doppler (5) Anemia: Qualifiers: Anemia type: unspecified type Qualified Code(s): D64.9 - Anemia, unspecified Code(s): D64.9 - Anemia, unspecified Status: Acute Assessment and Plan: Monitor closely. Will give Protonix. (6) Chronic hypertension: Code(s): I10 - Essential (primary) hypertension Status: Acute Assessment and Plan: Stable on current meds. (7) Acquired hypothyroidism: Code(s): E03.9 - Hypothyroidism, unspecified Status: Chronic Assessment and Plan: Stable on current medication. (8) Pure hyperglyceridemia: Code(s): E78.1 - Pure hyperglyceridemia Status: Acute Assessment and Plan: Stable on current meds pain (9) PTSD (post-traumatic stress disorder): Code(s): F43.10 - Post-traumatic stress disorder, unspecified Status: Chronic Assessment and Plan: Will continue current treatment. (10) Coronary artery disease involving [place] coronary artery of [place] heart: Code(s): I25.10 - Atherosclerotic heart disease of [place] coronary artery without angina pectoris Status: Acute Assessment and Plan: Will continue current treatment consult Cardiology. Additional Plan 10/02/2021 Workup is in progress. No new overnight complaints. Cardiology on consult pain Possible discharge in the morning. Subjective Date/time seen: 10/02/21 08:53 Patient was seen during the morning rounds today. Patient is feeling much better. No new overnight syncopal episodes. No shortness of breath chest pain. No abdominal pain, nausea, no vomiting. Mood stable. Review of Systems Review of Systems: All systems reviewed & are unremarkable except as noted in HPI and below (the history and physical examination.) Exam Narrative: GENERAL: Well-appearing, well-nourished, and in no acute distress. HEAD: Normocephalic, atraumatic. EYES: PERRLA and EOMI. ENT: Nares clear, no rhinorrhea or epistaxis. Mucous membranes moist. NECK: Supple. CHEST: Clear to auscultation. No respiratory distress. HEART: Regular rate and rhythm. No murmur heard. Normal peripheral pulses. ABDOMEN: Soft, nontender, nondistended, normal active bowel sounds. : Guaiac negative stool EXTREMITIES: Normal range of motion. No edema. SKIN: Warm, dry, no rash. NEURO: No focal deficits. Alert and oriented x3. PSYCH: Normal mood and affect. Objective Data Vital Signs Vital Signs: Vital Signs - 24 hr 10/01/21 09:39 10/01/21 10:20 10/01/21 10:21 Temperature 35.5 C L Pulse Rate 67 66 Respiratory Rate 18 18 Blood Pressure 124/67 106/56 L Pulse Oximetry 99 99 100 10/01/21 12:00 10/01/21 13:02 10/01/21 14:00 Temperature 36.2 C L Pulse Rate 76 74 64 Respiratory Rate 20 Blood Pressure 105/58 L Pulse Oximetry 100 10/01/21 16:00 10/01/21 18:00 10/01/21 19:31 Temperature 36.9 C Pulse Rate 70 57 L Respiratory Rate 18 Blood Pressure 99/50 L 81/52 L Pulse Oximetry 99 10/01/21 19:32 10/01/21 20:00 10/01/21 22:00 Temp
[2021-10-02] MEDS: PANTOPRAZOLE SODIUM IV 40 MG VIAL IV PUSH (09:45)
[2021-10-02] MEDS: carvediloL 25 MG TABLET PO (09:45)
[2021-10-02] MEDS: ASPIRIN 81 MG CHEWABLE TABLET PO (09:46)
[2021-10-02] MEDS: ESCITALOPRAM OXALATE 10 MG TABLET 20 MG PO (09:46)
[2021-10-02] MEDS: GABAPENTIN 300 MG CAPSULE PO (09:46)
[2021-10-02] MEDS: CHOLECALCIFEROL 1,000 UNITS TABLET 1000 UNITS PO (09:46)
[2021-10-02] MEDS: FENOFIBRATE 160 MG TABLET PO (09:46)
[2021-10-02] MEDS: lisinopriL 20 MG TABLET PO (09:46)
[2021-10-02] MEDS: ATORVASTATIN 40 MG TABLET PO (09:46)
[2021-10-02] MEDS: busPIRone HCL 2.5 MG TABLET PO (09:47)
[2021-10-02] MEDS: HYDROcodone/acetaminophen (*CRX) 10-325 MG TABLET 1 TAB PO (09:47)
[2021-10-02] MEDS: cloNIDine HCL 0.1 MG TABLET PO (09:47)
[2021-10-02] MEDS: busPIRone HCL 5 MG TABLET PO (09:47)
--- NOTE | 2021-10-02 10:02 | PM.CNCAR ---
Assessment and Plan Additional Plan This is a 71-year-old man with a history of coronary and peripheral vascular disease admitted to the hospital with what sounds like episodes of orthostasis and hypotension after several days of an illness where he had some sore throat and was unable to take fluids and probably became hypotensive on that basis. After receiving some IV fluid here over the weekend he is feeling better today. I do not see any evidence of a reason to be concerned about acute coronary syndrome. He is not having any ischemic symptoms and his troponin levels are negative x3 sets. In my opinion he is stable enough to be discharged home and follow-up as he has been with his established physicians as an outpatient. I do not believe he needs to stay in the hospital for an ischemic workup in this setting. Bret Lara MD [facility] History of Present Illness History of Present Illness Consult date/time: 10/02/21 10:02 Reason For Visit: Syncope, acute kidney injury, dehydration,elevated Narrative: This is a 71-year-old man who I am seeing at the request of the hospitalist this morning in consultation because of episodes of syncope/near syncope and according to the orders and elevated troponin level. The patient feels fine this morning and it has no active complaints. He states that he began to feel ill about a week ago when he had symptoms of a sore throat which he says made it difficult for him to take in food and fluids normally. He thinks for about 3 or 4 days he drank very little if anything because of this. The notes in the chart indicate he was also having diarrhea although he denies that to me. He had episodes of feeling lightheaded after that and had a couple of episodes where either he had loss of consciousness after standing up or nearly lost consciousness. For that reason he was brought to the hospital for evaluation. He does have a history of coronary artery disease and hypertension. He denies any recent symptoms of chest pain pressure or heaviness. He has not been having any orthopnea PND or edema. His outpatient medical regimen consists of carvedilol at 25 mg b.i.d., clonidine 0.1 mg b.i.d., clopidogrel 75 mg daily, lisinopril 40 mg daily and nifedipine 30 mg daily. He was given some intravenous fluid following admission to the hospital over the weekend and feels better. Offers no other complaints at this time. He has a history of coronary artery disease is followed by Dr. Sesar crawford in [place] and underwent bypass grafting at [facility] July of 2014. Those records are in the record for review. He does not believe he has had any cardiac problems since his coronary bypass operation. His only risk factor which is not optimize is he has chosen to continue to smoke cigarettes. Following admission 3 troponin levels were done which are normal. Review of Systems Constitutional: Constitutional: Reports no additional constitutional complaints Eyes: Eyes: Reports no additional eye complaints ENT: Reports system reviewed and no additional complaints, except as documented Cardiovascular: Cardiovascular: Reports as per HPI Respiratory: Respiratory: Reports no additional respiratory complaints Gastrointestinal: Gastrointestinal: Reports no additional gastrointestinal complaints Musculoskeletal: Musculoskeletal: Reports no additional musculoskeletal complaints Integumentary/Breasts: Skin/Breast: Reports system reviewed and no additional complaints, except as docu Neurologic: Reports system reviewed and no additional complaints, except as documented Endocrine: Endocrine: Reports no additional endocrine complaints Hematologic/Lymphatic: Hematologic/Lymphatic: Reports no additional hematologic/lymphatic complaints Allergic/Immunologic: Allergic/Immunologic: Reports no additional allergic/immunologic complaints [facility] Past Medical History Medical History (Reviewed 10/01/21 @ 11:18 by Duran Dao,
[2021-10-02] MEDS: FLUTICASONE/SALMETEROL 115-21 MCG INHALER 1 PUFF 2 PUFF INHALATION (10:14)
--- NOTE | 2021-10-02 10:35 | PM.DS ---
DS: Admitting Diagnosis Discharge Date 10/02/2021 Admitting Diagnosis Acute kidney injury Syncope DS: Discharge Diagnosis Discharge Diagnosis (1) Acute kidney injury: Code(s): N17.9 - Acute kidney failure, unspecified Status: Acute Assessment and Plan: Will give IV fluids and monitor closely. (2) Elevated lipase: Code(s): R74.8 - Abnormal levels of other serum enzymes Status: Acute Assessment and Plan: CT abdomen is negative. Will repeat imaging lap in the morning. (3) Elevated troponin: Code(s): R77.8 - Other specified abnormalities of plasma proteins Status: Acute Assessment and Plan: Will trend troponin. Patient BNP is high also. Will check 2D echo and consult Cardiology. (4) Syncope: Qualifiers: Syncope type: unspecified Qualified Code(s): R55 - Syncope and collapse Code(s): R55 - Syncope and collapse Status: Acute Assessment and Plan: Most likely from dehydration, will check echo and carotid Doppler (5) Anemia: Qualifiers: Anemia type: unspecified type Qualified Code(s): D64.9 - Anemia, unspecified Code(s): D64.9 - Anemia, unspecified Status: Acute Assessment and Plan: Monitor closely. Will give Protonix. (6) Chronic hypertension: Code(s): I10 - Essential (primary) hypertension Status: Acute Assessment and Plan: Stable on current meds. (7) Acquired hypothyroidism: Code(s): E03.9 - Hypothyroidism, unspecified Status: Chronic Assessment and Plan: Stable on current medication. (8) Pure hyperglyceridemia: Code(s): E78.1 - Pure hyperglyceridemia Status: Acute Assessment and Plan: Stable on current meds pain (9) PTSD (post-traumatic stress disorder): Code(s): F43.10 - Post-traumatic stress disorder, unspecified Status: Chronic Assessment and Plan: Will continue current treatment. (10) Coronary artery disease involving [place] coronary artery of [place] heart: Code(s): I25.10 - Atherosclerotic heart disease of [place] coronary artery without angina pectoris Status: Acute Assessment and Plan: Will continue current treatment consult Cardiology. DS: Summary Hospital Course Reason for hospitalization: Acute kidney injury Syncopal Hospital Course: Patient is 71 years old male was admitted complains of having generalized weakness and near syncopal episode. Patient was found to be dehydrated, patient was given IV fluids. Troponins were also trended. Cardiology consult was done Patient is feeling better patient discharged home in stable condition. Follow-up with the primary care and cardiology outpatient next week. Time spent discussing smoking cessation with patient: 3 to 10 minutes Status at Discharge Cognitive/behavioral status at discharge: Stable Functional status at discharge: independent ambulation Overall status at discharge: patient is back to baseline Time Spent with Patient Time attestation: Total time spent providing and/or coordinating discharge services: Time spent: Less than 30 minutes Exam Const: General: cooperative and no acute distress Orientation/consciousness: oriented to person, oriented to place, oriented to time and patient oriented x3 HENMT: Head: normal to inspection Ears: hearing grossly normal bilaterally and external ears normal General nose exam: Normal external nose present Face and sinus: normal facial exam Mouth: Yes Normal oral and palatal mucosa present Eyes: General: appearance normal, both eyes and all related structures Neck: Neck: normal visual inspection and full ROM Chest: Chest palpation & inspection: normal inspection of the chest and normal palpation of entire chest wall Resp: Effort & Inspection: normal respiratory effort Auscultation: clear to auscultation bilaterally Cardio: Jugular venous distension: no JVD Palpation: normal PMI Rate:
[2021-10-02] MEDS: CLOPIDOGREL BISULFATE 75 MG TABLET PO (11:03)
[2021-10-02] MEDS: NIFEdipine 30 MG TAB.ER.24 PO (11:03)
[2021-10-02] MEDS: cilostazoL 100 MG TABLET PO (11:03)
[2021-10-02 17:09] LABS: Hepatitis B Surface Antigen Negative (Negative)
[2021-10-02 17:41] LABS: HIV 1/2 Ab P24 Ag Result Negative (Negative); Hepatitis C Virus Antibody Reactive (Negative)
[2021-10-07 16:02] LABS: Hepatitis C RNA, Quant PCR <15 IU/mL
== END 2021-10-02 12:08 | disposition home or self-care (01) ==
LOC: ANHED 07:01 → ANHIMU 10:53
PROVIDERS: Admitting Provider Internal Medicine; Emergency Provider Emergency Medicine; PCP Family Medicine; Visit Provider Internal Medicine
DX: N17.9 Acute kidney failure, unspecified (principal); R74.8 Abnormal levels of other serum enzymes; R77.8 Other specified abnormalities of plasma proteins; D64.9 Anemia, unspecified; R55 Syncope and collapse; E86.0 Dehydration; I48.91 Unspecified atrial fibrillation; I12.9 Hypertensive chronic kidney disease with stage 1 through stage 4 chronic kidney disease, or unspecified chronic kidney disease; N18.4 Chronic kidney disease, stage 4 (severe); I65.23 Occlusion and stenosis of bilateral carotid arteries; J44.9 Chronic obstructive pulmonary disease, unspecified; I73.9 Peripheral vascular disease, unspecified; F03.90 Unspecified dementia, unspecified severity, without behavioral disturbance, psychotic disturbance, mood disturbance, and anxiety; E78.1 Pure hyperglyceridemia; F43.10 Post-traumatic stress disorder, unspecified; I25.10 Atherosclerotic heart disease of native coronary artery without angina pectoris; Z86.73 Personal history of transient ischemic attack (TIA), and cerebral infarction without residual deficits; Z11.4 Encounter for screening for human immunodeficiency virus [HIV]; Z20.822 Contact with and (suspected) exposure to COVID-19; F41.8 Other specified anxiety disorders; K21.9 Gastro-esophageal reflux disease without esophagitis; E78.5 Hyperlipidemia, unspecified; E03.9 Hypothyroidism, unspecified; B19.20 Unspecified viral hepatitis C without hepatic coma; G62.9 Polyneuropathy, unspecified; G47.30 Sleep apnea, unspecified; Z98.1 Arthrodesis status; Z98.84 Bariatric surgery status; F17.210 Nicotine dependence, cigarettes, uncomplicated; Z79.02 Long term (current) use of antithrombotics/antiplatelets; Z79.891 Long term (current) use of opiate analgesic; Z95.1 Presence of aortocoronary bypass graft
CPT/HCPCS: 36415; 70450; 71045; 74176; 80053; 81001; 82150; 83605; 83690; 83735; 83880; 84443; 84484; 85014; 85018; 85025; 85027; 85055; 86703; 86803; 87340; 87522; 87804; 93005; 93306; 93880; 94640; 96361; 96374; 96376; 99285; A9270; C9113; C9803; G0378; G0432; J7030; J7040; Q9957; U0003; U0005

== ENCOUNTER 2022-06-12 15:19 | Outpatient (CLI) | payer MEDICARE, SELFPAY ==
[2022-06-12 16:02] LABS: Basophils Absolute Auto 0.1 K/mm3 (0.0-0.1); Basophils Percent Auto 0.5 % (0.2-1.2); Eosinophils Percent Auto 0.2 % (0-4.4); Hematocrit 32.6 % (42.0-52.0); Hemoglobin 10.6 g/dL (14.0-18.0); Immature Granulocyte Absolute 0.06 K/mm3 (0.00-0.031); Immature Granulocyte Percent A 0.5 % (0-0.5); Lymphocytes Absolute Auto 1.31 K/mm3 (0.9-3.2); Lymphocytes Percent Auto 11.5 % (18.3-44.2); Mean Corpuscular HGB Conc 32.5 g/dl (32-36); Mean Corpuscular Hemoglobin 31.7 pg (26-34); Mean Corpuscular Volume 97.6 fl (80-100); Mean Platelet Volume 10.6 fl (7.4-10.4); Monocytes Absolute Auto 1.4 K/mm3 (0.1-0.6); Monocytes Percent Auto 12.3 % (2.6-8.5); Neutrophils Absolute Auto 8.5 K/mm3 (1.3-6.7); Platelet Count Result 398 k/mm3 (150-375); Red Blood Count 3.34 M/mm3 (4.6-6.20); Red Cell Distribution Width 16.2 % (11.5-14.5); White Blood Count 11.4 K/mm3 (4.5-10.0)
[2022-06-12 16:21] LABS: Alanine Aminotransferase 13 U/L (6-50); Albumin Level 3.5 g/dL (3.5-5.1); Alkaline Phosphatase 108 U/L (38-126); Amylase 82 U/L (30-110); Anion Gap 11 mmol/L (8-16); Aspartate Amino Transferase 56 U/L (17-59); Bilirubin,Total 0.9 mg/dL (0.2-1.3); Blood Urea Nitrogen 19 mg/dL (9-20); Carbon Dioxide 24 mmol/L (22-30); Chloride 101 mmol/L (98-107); Estimated Glomerular Filt Rate 43; Glucose 106 mg/dL (65-110); Lipase 36 U/L (23-300); Potassium 4.1 mmol/L (3.4-5.0); Sodium 136 mmol/L (137-145)
[2022-06-12 16:30] LABS: Appearance Urine Clear (Clear); Bilirubin Urine Negative (Negative); Blood Urine 3+ (Negative); Color Urine Yellow (Yellow); Glucose Urine UA Negative (Negative); Ketones Urine Negative (Negative); Leukocyte Esterase Ur Negative LEU/UL (NEGATIVE); Nitrate Urine Negative (Negative); Protein Urine Trace mg/dL (Negative)
[2022-06-12 16:50] LABS: WBC Urine 0-3 /hpf (0-3)
[2022-06-12 16:51] LABS: Mucus Urine Rare /lpf
[2022-06-12 16:53] LABS: Add Urine Microscopic? YES
== END 2022-06-12 15:20 | disposition home or self-care (01) ==
PROVIDERS: PCP Family Medicine; Visit Provider Physician Assistant
DX: R10.9 Unspecified abdominal pain (principal); R11.0 Nausea; E55.9 Vitamin D deficiency, unspecified
CPT/HCPCS: 36415; 80053; 81001; 82150; 83690; 85025; 87086

== ENCOUNTER 2022-06-13 08:08 | Outpatient (CLI) | payer MEDICARE, SELFPAY ==
--- NOTE | ~2022-06-13 | XR_ITS ---
XR ribs BI 3V w CXR 2V DATE: 06/13/2022 09:20 INDICATION: Pain TECHNIQUE: PA and lateral chest. 3 views of right ribs. 3 views of left ribs. COMPARISON: 08/25/2021 CT lung screening 09/30/2021 view chest FINDINGS: Status post sternotomy. Epicardial pacemaker wire remains. Normal heart size. No hilar or m ediastinal mass lesion or lymphadenopathy. No pulmonary infiltrate or consolidation, pleural effusion or pulmonary vascular congestion or pneumo thorax. Diffuse osteopenia. Status post anterior cervical spine surgical fusion at C5-6. Prominent fracture deformity at T12, chronic, present on 08/25/2021 CT chest examination. No apparent rib fracture or bone destruction is noted. IMPRESSION: Status post sternotomy No active cardiac pulmonary disease Osteopenia Status post anterior lower cervical spine surgical fusion Chronic T12 compression fracture No apparent rib fracture Reviewed, dictated and finalized at location B.
--- NOTE | ~2022-06-13 | CT_ITS ---
EXAMINATION: CT abdomen pelvis wo con DATE: 06/13/2022 08:30 INDICATION: Right upper quadrant abdominal pain. TECHNIQUE: Computed tomography (CT) of the abdomen and pelvis was performed without intravenous contr ast. Automated exposure control and iterative reconstruction technique were employed. The dose-length product was 250.61 mGy-cm. COMPARISON: CT abdomen and pelvis 10/01/2021 FINDINGS: The visualized portions of the lung bases demonstrate chronic peripheral septal thickening, consistent with chronic interstitial lung disease. A calcified left lung nodule is consistent with o ld granulomatous disease. No pleural effusion. The heart size is normal. There are coronary artery ca lcifications. No pericardial effusion. There is an 11.0 x 9.0 cm hypodense mass in right hepatic lobe . The gallbladder is normal. Calcifications in the spleen are consistent with old granulomatous disea se. The pancreas and adrenal glands are normal. Calcifications at the cally of the kidneys are at leas t predominantly vascular. There is a 13 mm cyst in left kidney. There is calcified atherosclerosis of the aorta and many of the other arteries. There is a stent in right external iliac artery. There are no dilated loops of bowel. The appendix is normal. An aortocaval node measures 12 x 19 mm. There is mild periportal lymphadenopathy. There is an intrathecal catheter. There is thoracolumbar levoscolios is. There are chronic compression fractures of T12 and L3. IMPRESSION: 1. 11.0 cm liver mass, consistent with primary malignancy such as hepatocellular carcinoma or cholang iocarcinoma or metastatic disease. Ultrasound-guided core needle biopsy is recommended. 2. Mild periportal and aortocaval lymphadenopathy, consistent with metastatic disease. Reviewed, dictated and finalized at location A. IMPRESSION: 1. 11.0 cm liver mass, consistent with primary malignancy such as hepatocellula r carcinoma or cholangiocarcinoma or metastatic disease. Ultrasound-guided core needle biopsy is recommended. 2. Mild periportal and aortocaval lymphadenopathy, consistent with metastatic d isease.
== END 2022-06-13 08:09 | disposition home or self-care (01) ==
PROVIDERS: PCP Family Medicine; Visit Provider Physician Assistant
DX: R31.9 Hematuria, unspecified (principal); M48.55XA Collapsed vertebra, not elsewhere classified, thoracolumbar region, initial encounter for fracture; R11.0 Nausea; R63.4 Abnormal weight loss; R10.11 Right upper quadrant pain; R09.89 Other specified symptoms and signs involving the circulatory and respiratory systems; M41.9 Scoliosis, unspecified; I70.0 Atherosclerosis of aorta; N28.1 Cyst of kidney, acquired; R59.1 Generalized enlarged lymph nodes; R16.0 Hepatomegaly, not elsewhere classified; M85.88 Other specified disorders of bone density and structure, other site; Z98.1 Arthrodesis status
CPT/HCPCS: 71046; 71110; 74176

== ENCOUNTER 2022-07-19 12:20 | Observation (INO) | payer MEDICARE, OTHER, SELFPAY ==
[2022-07-19] VITALS (33 sets, daily range): BP systolic 95–189; BP diastolic 58–93; PULSE 67–82; RESP 13–23; TEMP 36.8; O2SAT 99–100; BMI 21.7
--- NOTE | ~2022-07-19 | CT_ITS ---
EXAMINATION: CT brain wo con DATE: 07/19/2022 12:28 INDICATION: Stroke TECHNIQUE: Computed tomography (CT) of the head was performed without intravenous contrast. The dose- length product was 681.00 mGy-cm. Automated exposure control and iterative reconstruction technique w ere employed. COMPARISON: CT dated 10/01/2021 FINDINGS: There is a chronic right parietal infarction involving the quiroz radiata. There are scatte red mild periventricular and subcortical white matter changes, most likely related to small vessel is chemic disease (microangiopathy). No ventriculomegaly or midline shift. There is a chronic right fron ga lobe infarction. No ventriculomegaly or midline shift. Basilar cisterns are patent. There is intr acranial atherosclerosis. There is mucosal thickening of the ethmoid air cells. Mastoids are pneumati zed. There is a small focal left thalamic infarct. There is a chronic left cerebellar infarction. No depressed skull fractures. IMPRESSION: 1. No acute intracranial abnormality. 2: Chronic right frontal lobe, right parietal lobe, left thalamic and left cerebellar infarctions. 3: Chronic age-related findings. As per stroke protocol, I called these results to emergency room, discussed with Ramez Varela at 07/19/2022 12:35 CDT. Reviewed, dictated and finalized at location B. IMPRESSION: 1. No acute intracranial abnormality. 2: Chronic right frontal lobe, right parietal lobe, left thalamic and left cer ebellar infarctions. 3: Chronic age-related findings. As per stroke protocol, I called these results to emergency room, discussed wit h Dr. Billy Wilson MD at 07/19/2022 12:35 CDT.
--- NOTE | ~2022-07-19 | XR_ITS ---
XR chest 1V portable 07/19/2022 12:49 Indication: CVA. Smoking history. COPD. Procedure: AP portable chest Comparison: Comparison to multiple prior studies sequentially, with oldest reviewed study dated 02/13. Findings: Status post median sternotomy for CABG. Heart size normal. No focal air space disease, pulm onary edema, pleural effusion or suspected pneumothorax. No acute osseous abnormality. Impression: 1: No acute cardiopulmonary disease. Reviewed, dictated and finalized at location B. Impression: 1: No acute cardiopulmonary disease.
--- NOTE | 2022-07-19 12:24 | ECG_ITS ---
Measurements Intervals [place] Rate: 73 P: 7 MI: 159 QRS: 84 QRSD: 109 T: 51 QT: 409 QTc: 451 Interpretive Statements SINUS RHYTHM VOLTAGE CRITERIA FOR LVH [MEETS CRITERIA IN ONE OF: R(aVL), S(V1), R(V5), R(V5/V6)+S(V1)] COMPARED TO ECG 10/01/2021 05:08:15 SINUS RHYTHM NOW PRESENT Electronically Signed On 07-19-2022 14:33:58 CDT by Rigo Wen M.D.
[2022-07-19 12:37] LABS: Glucose Point of Care 64 mg/dl (65-105)
--- NOTE | 2022-07-19 12:37 | PC.NURSE ---
pt. to room per WC from CT; BS and labs have been obtained.
[2022-07-19 12:42] LABS: Basophils Absolute Auto 0.1 K/mm3 (0.0-0.1); Eosinophils Absolute Auto 0.2 K/mm3 (0-0.3); Eosinophils Percent Auto 2.2 % (0-4.4); Hematocrit 32.4 % (42.0-52.0); Hemoglobin 10.6 g/dL (14.0-18.0); Immature Granulocyte Absolute 0.06 K/mm3 (0.00-0.031); Immature Granulocyte Percent A 0.6 % (0-0.5); Lymphocytes Absolute Auto 1.61 K/mm3 (0.9-3.2); Lymphocytes Percent Auto 16.1 % (18.3-44.2); Mean Corpuscular HGB Conc 32.7 g/dl (32-36); Mean Corpuscular Volume 97.9 fl (80-100); Monocytes Absolute Auto 1.3 K/mm3 (0.1-0.6); Monocytes Percent Auto 13.2 % (2.6-8.5); Neutrophils Absolute Auto 6.7 K/mm3 (1.3-6.7); Neutrophils Percent Auto 66.9 % (45.5-73.1); Platelet Count Result 313 k/mm3 (150-375); Red Blood Count 3.31 M/mm3 (4.6-6.20); Red Cell Distribution Width 15.6 % (11.5-14.5)
--- NOTE | 2022-07-19 12:44 | ED.GENADULT ---
HPI - General Adult General Chief complaint: Head Injury Stated complaint: slurring words. fell and hit head Time Seen by Provider: 07/19/22 12:36 Source: RN notes reviewed History of Present Illness HPI narrative: Patient presents emergency department from home for slurred speech. Patient states that approximately 10 AM this morning the phone has been ringing or gone to get out of his recliner states he has been feeling generally weak and when he went to get up he had fallen and hit his head she did not have loss of consciousness but the family notes that since the patient has had has been having mildly slurred speech patient states he has no unilateral weakness but states he has been feeling generally weak in his legs over the past several days he denies any vision changes he denies any problems coming up the with the words he wants to speak he denies any unilateral weakness he states he was just recently diagnosed with metastatic liver cancer after masses found in his liver and he had a biopsy done he has not seen oncology at this point Related Data Home Medications Medication Instructions Recorded Confirmed cilostazol 100 mg tablet 100 mg PO BID 09/30/19 06/12/22 clopidogrel 75 mg tablet 75 mg PO DAILY 09/30/19 06/12/22 fluticasone 250 mcg-salmeterol 50 2 inh inhalation PRN PRN Shortness 09/30/19 06/12/22 mcg/dose blistr powdr for Of Breath inhalation (Advair Diskus) gabapentin 600 mg tablet 300 mg PO BID 09/30/19 06/12/22 hydrocodone 10 mg-acetaminophen 1 tablet PO Q6H PRN Pain 10/06/19 06/12/22 325 mg tablet ([place]) cholecalciferol (vitamin D3) 25 25 mcg PO DAILY 10/01/21 06/12/22 mcg (1,000 unit) tablet Allergies Allergy/AdvReac Type Severity Reaction Status Date / Time erythromycin base Allergy Unknown Hives Verified 06/12/22 10:28 Sulfa (Sulfonamide Allergy Unknown Rash Verified 06/12/22 10:28 Antibiotics) Review of Systems Review of Systems: Gen.: Denies fevers or chills Eyes: Denies eye pain or visual change ENT: Denies congestion Respiratory: Denies shortness of breath or cough CV: Denies chest pain or palpitations GI: Denies abdominal pain nausea, emesis or diarrhea Musculoskeletal: Denies back pain or muscle pain Neuro: See HPI Skin: Denies rash Except as documented, all other systems reviewed and negative [facility] Past Medical History Medical History Afib Anxiety Carotid stenosis Chronic kidney disease, stage 4 (severe) COPD (chronic obstructive pulmonary disease) 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 DDD (degenerative disc disease) Dementia Depression Foot fracture bilateral GERD (gastroesophageal reflux disease) GI bleed Hepatitis C HTN (hypertension) Hyperlipidemia Hypothyroid Kidney stone Peripheral neuropathy Pneumonia Seborrheic keratosis Seizure Sleep apnea Stage 3 chronic kidney disease Surgical History Surgical History History of appendectomy History of bypass gastroenterostomy History of endarterectomy femoral - L Hx of fusion of cervical spine Family History Family History Father Diabetes mellitus Hypertension Family history of cardiovascular disease Mother Hypertension Family history of cardiovascular disease Sibling Family history of cardiovascular disease Social History Social History Smoking packs per day: 0.5 Smoking cigarettes per day: 10.0 Years smoked: 50 Smoking pack-years: 25.00 Smoking status: Current every day smoker Tobacco type: cigarettes Second hand tobacco smoke exposure: No Alcohol intake: never Substance use: never Substance use type: does not use Gender identity (if verbalized by the patient): Male Spiritual care concerns: No Exam Narrative: APPEARANCE: No a
[2022-07-19 12:50] LABS: INR 1.1; Prothrombin Time 13.4 Seconds (11.1-14.7)
[2022-07-19 12:51] LABS: Partial Thromboplastin Time 38.2 SECONDS (22.3-36.8)
[2022-07-19 12:53] LABS: Alanine Aminotransferase 13 U/L (6-50); Albumin Level 3.3 g/dL (3.5-5.1); Alkaline Phosphatase 107 U/L (38-126); Anion Gap 7 mmol/L (8-16); Aspartate Amino Transferase 91 U/L (17-59); Bilirubin,Total 0.5 mg/dL (0.2-1.3); Blood Urea Nitrogen 27 mg/dL (9-20); Calcium 9.7 mg/dL (8.4-10.2); Carbon Dioxide 24 mmol/L (22-30); Chloride 105 mmol/L (98-107); Estimated CRCL calculation 23 ml/min; Estimated Glomerular Filt Rate 26; Glucose 57 mg/dL (65-110); Potassium 4.5 mmol/L (3.4-5.0); Sodium 136 mmol/L (137-145)
[2022-07-19] MEDS: SODIUM CHLORIDE 0.9% IV 1,000 ML 999 ML IV CONT (12:57)
[2022-07-19 13:03] LABS: Troponin I < 0.012 ng/mL (0.000-0.034)
[2022-07-19 13:14] LABS: Anisocytosis 1+ (NORMAL); Platelet Estimate Adequate (Adequate); Stomatocytes 2+ (NORMAL); Target Cells 1+ (NORMAL)
[2022-07-19 13:15] LABS: Large Platelets Present; Schistocytes None Seen (NORMAL)
[2022-07-19 13:17] LABS: Glucose Point of Care 100 mg/dl (65-105)
[2022-07-19 13:20] LABS: Lipase 29 U/L (23-300)
[2022-07-19 13:27] LABS: Ammonia < 9 umol/L (9-30)
[2022-07-19 13:54] LABS: SARS-CoV-2 RNA PCR Negative
[2022-07-19 15:24] LABS: Glucose Point of Care 84 mg/dl (65-105)
[2022-07-19 15:29] LABS: Add Urine Microscopic? YES; Appearance Urine Cloudy (Clear); Bilirubin Urine Negative (Negative); Blood Urine Negative (Negative); Color Urine Yellow (Yellow); Glucose Urine UA Negative (Negative); Hyaline Casts Urine 15-19 /lpf; Ketones Urine Negative (Negative); Leukocyte Esterase Ur Negative LEU/UL (Negative); Mucus Urine Rare /lpf; Nitrate Urine Negative (Negative); Protein Urine Negative (Negative); Specific Grav Ur 1.024 (1.001-1.035); Squamous Epithelial Cell Urine Rare /hpf (Few); WBC Urine 0-3 /hpf
[2022-07-19] MEDS: SODIUM CHLORIDE 0.9% IV 1,000 ML 100 ML IV CONT (17:59)
--- NOTE | 2022-07-19 18:03 | PM.IMHP ---
H&P: HPI History of Present Illness Date/Time: 07/19/22 18:03 Chief Complaint: Head injury Narrative: This is a 71-year-old male patient who was recently diagnosed with a liver tumor. The patient stated he actually did have a biopsy and was found to have cancer and that he has not yet started his treatment. The patient stated that he is going to see an oncologist at the [facility] but cannot recall his name. The patient has had a CVA in the past without any residual. The patient came to the emergency room today from home with slurred speech. The patient states around 10:00 a.m. this morning the phone had been ringing and when he got out of his recliner he felt very weak and he tried to get up and he fell and he hit his head but he did lose consciousness. The patient also started having slurred speech without any focal weakness. The patient was feeling generally weak and his legs for the past several days. He denies any visual changes. Patient also has word searching. The patient was back to his baseline once I some in the emergency room. The patient was given IV fluids in the emergency room. The patient was talking in full sentences when I saw him and he was actually sitting up and was going to try to eat something. However the patient stated that he has not had much of an appetite lately. His H&H is 10.6 and 32.4 which appears to be his baseline. Sodium is 136. Patient's creatinine is 2.5. Back in November his creatinine had gotten up to to and 2.05 however last month was 1.6. The patient stated that he had been to see a training professional in the past but he stated that all they do was monitor his blood levels and he states that is about it. Patient's blood sugar was found to be 57. The patient is not diabetic and does not take any insulin. He just has had a poor appetite. Repeat blood sugar was 84. Patient was negative for COVID. Chest x-ray was read as no acute cardiopulmonary disease. Head CT was read as no acute intracranial abnormality. Chronic right frontal lobe, right parietal lobe, left thumb make and left cerebellar infarctions. Chronic age-related findings. The patient has no other complaints. Dr. Murray has been consulted. The patient is being admitted for observation status on the date of service of 07/19/2022. Review of Systems Review of Systems: See HPI All systems reviewed & are unremarkable except as noted in HPI and below Constitutional: Constitutional: Reports as per HPI and Reports no additional constitutional complaints Eyes: Eyes: Reports as per HPI and Reports no additional eye complaints ENT: Reports system reviewed and no additional complaints, except as documented and Reports Normal hearing present Cardiovascular: Cardiovascular: Reports no additional cardiovascular complaints Respiratory: Respiratory: Reports no additional respiratory complaints and Reports no additional respiratory complaints Gastrointestinal: Gastrointestinal: Reports as per HPI and Reports no additional gastrointestinal complaints Musculoskeletal: Musculoskeletal: Reports no additional musculoskeletal complaints Integumentary/Breasts: Skin/Breast: Reports system reviewed and no additional complaints, except as docu and Reports as per HPI Neurologic: Reports system reviewed and no additional complaints, except as documented, Reports as per HPI and Reports Normal hearing present Psychiatric: Psychiatric: Reports no additional psychiatric complaints and Reports as per HPI Endocrine: Endocrine: Reports no additional endocrine complaints Hematologic/Lymphatic: Hematologic/Lymphatic: Reports no additional hematologic/lymphatic complaints Allergic/Immunologic: Allergic/Immunologic: Reports no additional allergic/immunologic complaints [facility] Past Medical History Medical History (Updated 07/19/22 @ 20:51 by Stephy Moser NP) Acute hyperglycemia Afib Anxiety Carotid stenosis Chronic kidney disease, stage 4 (severe) COPD (chr
[2022-07-19] MEDS: HYDROcodone/acetaminophen (*CRX) 10-325 MG TABLET 1 TAB PO (18:39)
--- NOTE | 2022-07-19 21:02 | ADMGEN ---
This patient, Jaylan Levy, was admitted to [address] [facility] Surg Room 320-01. Patient/family oriented to hospital policies and general routines including ID bracelet, bed and alarms, visiting hours, pain management, procedures, bathroom and other care routines, personal items, smoking policy, room service/diet, and visiting hours. Information on how to activate the Rapid Response Team has been discussed. Patient/Family are encouraged to report perceived risks to care and to ask questions if they do not understand what they are told or what they should do. Patient has no complaint of pain or SOB.
[2022-07-19 21:55] LABS: Glucose Point of Care 105 mg/dl (65-105)
[2022-07-19 22:24] LABS: Hemoglobin A1C 4.3 % (<5.7)
--- NOTE | 2022-07-20 | ECHO_ITS ---
Patient Info Name: Jaylan Levy Age: 71 years : 1950 Gender: Male Ht: 67 in Wt: 140 lbs BSA: 1.73 m2 HR: 77 bpm BP: 189 / 93 mmHg Heart Rhythm: Sinus Rhythm Exam Date: 07/20/2022 10:18 AM Exam Location: [facility] Pulmonary Patient Status: Outpatient Admit Date: 07/19/2022 Staff Ordering Physician: Stephy Moser NP Jewel Cupping Machine Operator: Tim Mauricio RDCS, RT Attending Provider: Ira Campbell DO Referring Physician: Ehsan VALENZUELA; Exam Type: CA echo doppler color flow Study Info Indications G45.8 - Other transient cerebral ischemic attacks and related syndromes Complete two-dimensional, color flow and Doppler transthoracic echocardiogram is performed. Strain analysis performed. Summary 1. Complete two-dimensional, color flow and Doppler transthoracic echocardiogram is performed. 2. Left ventricular chamber dimension is normal. 3. Left ventricular systolic function is normal, estimated at 55-60% with basal inferior hypokinesis. 4. There is mildly increased left ventricular wall thickness. 5. The left ventricular diastolic function is grade I diastolic dysfunction. 6. Global longitudinal strain is mildly elevated at -14 %. 7. There is mild tricuspid valve regurgitation. 8. Mild pulmonary hypertension, estimated pulmonary arterial systolic pressure is 41 mmHg. Left Ventricle Left ventricular chamber dimension is normal. Left ventricular systolic function is normal, estimated at 55-60% with basal inferior hypokinesis. There is mildly increased left ventricular wall thickness. The left ventricular diastolic function is grade I diastolic dysfunction. Global longitudinal strain is mildly elevated at -14 %. Right Ventricle Right ventricular chamber dimension is normal. Right ventricular systolic function is normal. Left Atria Left atrial chamber dimension is normal. Right Atria Right atrial chamber dimension is normal. Aortic Valve The aortic valve is trileaflet. There is mild aortic valve sclerosis. There is no aortic valve stenosis. There is no aortic valve regurgitation. Pulmonic Valve The pulmonic valve is not well visualized. There is trace pulmonic regurgitation. Mitral Valve The mitral valve has normal leaflets. There is mild mitral valve regurgitation. Tricuspid Valve The tricuspid valve leaflets are normal. There is mild tricuspid valve regurgitation. Mild pulmonary hypertension, estimated pulmonary arterial systolic pressure is 41 mmHg. Pericardium/Pleural The pericardium appears normal. There is no pericardial effusion. Inferior Vena Cava Normal inferior vena cava with >50% collapse upon inspiration consistent with normal right atrial pressure, 5 mmHg. Aorta The aortic root size at the sinus of Valsalva is normal. Left Ventricular Outflow Tract Name Value Normal LVOT 2D LVOT Diameter 2.0 cm LVOT Doppler LVOT Peak Gradient 3 mmHg LVOT Mean Gradient 2 mmHg LVOT VTI 17 cm LVOT VTI/AV VTI Ratio 0.8 LVOT Stroke Volume
[2022-07-20] MEDS: SODIUM CHLORIDE 0.9% IV 1,000 ML 100 ML IV CONT (04:26)
[2022-07-20] MEDS: ONDANSETRON INJ 4 MG/2 ML VIAL IV PUSH (04:26)
[2022-07-20 06:00] VITALS: BP 166/75; PULSE 76; RESP 17; TEMP 35.9; O2SAT 98
[2022-07-20 07:25] LABS: Lactic Acid Reflex 0.7 mmol/L (0.7-2.0)
[2022-07-20 07:29] LABS: Alanine Aminotransferase 11 U/L (6-50); Albumin Level 2.9 g/dL (3.5-5.1); Alkaline Phosphatase 82 U/L (38-126); Anion Gap 8 mmol/L (8-16); Aspartate Amino Transferase 98 U/L (17-59); Blood Urea Nitrogen 19 mg/dL (9-20); Calcium 8.8 mg/dL (8.4-10.2); Carbon Dioxide 21 mmol/L (22-30); Chloride 105 mmol/L (98-107); Estimated CRCL calculation 36 ml/min; Estimated Glomerular Filt Rate 43; Glucose 76 mg/dL (65-110); Lipase 13 U/L (23-300); Magnesium 1.3 mg/dL (1.6-2.3); Potassium 4.3 mmol/L (3.4-5.0); Sodium 134 mmol/L (137-145)
[2022-07-20 07:30] LABS: Basophils Absolute Auto 0.1 K/mm3 (0.0-0.1); Basophils Percent Auto 0.6 % (0.2-1.2); Eosinophils Absolute Auto 0.1 K/mm3 (0-0.3); Hematocrit 28.7 % (42.0-52.0); Hemoglobin 9.4 g/dL (14.0-18.0); Immature Granulocyte Absolute 0.05 K/mm3 (0.00-0.031); Immature Granulocyte Percent A 0.5 % (0-0.5); Lymphocytes Percent Auto 10.7 % (18.3-44.2); Mean Corpuscular HGB Conc 32.8 g/dl (32-36); Mean Corpuscular Hemoglobin 31.5 pg (26-34); Mean Corpuscular Volume 96.3 fl (80-100); Mean Platelet Volume 11.4 fl (7.4-10.4); Monocytes Absolute Auto 1.2 K/mm3 (0.1-0.6); Monocytes Percent Auto 12.8 % (2.6-8.5); Neutrophils Absolute Auto 6.9 K/mm3 (1.3-6.7); Neutrophils Percent Auto 74.4 % (45.5-73.1); Platelet Count Result 261 k/mm3 (150-375); Red Blood Count 2.98 M/mm3 (4.6-6.20); Red Cell Distribution Width 15.3 % (11.5-14.5); White Blood Count 9.3 K/mm3 (4.5-10.0)
[2022-07-20 07:51] LABS: Glucose Point of Care 82 mg/dl (65-105)
--- NOTE | 2022-07-20 07:51 | PC.NURSE ---
Patient was asked about MRI for today and other procedures, patient declines and stated, They have done all they gone do yesterday, I am ready to go home . Patient teaching was done but patient still refused.
--- NOTE | 2022-07-20 07:56 | PM.IMPN ---
Progress Note: A&P Assessment and Plan (1) TIA (transient ischemic attack): Code(s): G45.9 - Transient cerebral ischemic attack, unspecified Status: Acute Assessment and Plan: -the CT was showing some old CVAs. -continue with his home dose of Plavix and aspirin. -neurology has been consulted. -MRI has been ordered. -the patient is already on atorvastatin. -carotid Dopplers from 10/01/2021 were read as the following 1. 50-69% stenosis in the right internal carotid artery by sonographic criteria. 2. 50-69% stenosis in the left internal carotid artery by sonographic criteria. I did repeat his carotid Dopplers for tomorrow. -the patient also had an echo on 10/02/2021 1. Complete two-dimensional, color flow and Doppler transthoracic echocardiogram is performed. ? 2. Left ventricular chamber dimension is normal. ? 3. There is mild concentric increased left ventricular wall thickness. ? 4. Left ventricular systolic function is normal, estimated at 55-60%. ? 5. Left atrial chamber dimension is mildly enlarged. ? 6. No significant valve abnormalities. I did repeat his echo Patient is back to his baseline so there is no need for swallow study. However the patient stated he is weak all over so do a PT and OT evaluation.. -the patient may have had symptoms just because his blood sugar was low at that time. The patient is not diabetic and is not on any insulin. Will continue to check his blood sugars with hypoglycemic protocol. (2) Cancer of liver: Code(s): C22.9 - Malignant neoplasm of liver, not specified as primary or secondary Status: Acute Assessment and Plan: -the patient stated that he had a biopsy and he is not sure what type of cancer it is and he has not had his 1st visit with the oncologist as of yet. I asked the patient if he wanted to see the oncologist here. However the patient stated that he is to see a oncologist at the [facility]. (3) Acute renal insufficiency: Code(s): N28.9 - Disorder of kidney and ureter, unspecified Status: Acute Assessment and Plan: -the patient's creatinine is 2.5 today last month it was 1.6 and previously was 2.5 and 2.0. The patient stated that he has seen a sap portal architect in the past but they discontinue to monitor with lab draws. -avoid any nephrotoxic medication. -renal ultrasound -the patient has had poor oral intake is he has had a decreased appetite. The patient may be dehydrated this may be prerenal azotemia -continue with IV fluids. (4) Tobacco dependence: Code(s): F17.200 - Nicotine dependence, unspecified, uncomplicated Status: Chronic Assessment and Plan: -we spoke about smoking cessation and the benefits for approximately 5 minutes. The patient is agreeable to nicotine patch. (5) Paroxysmal atrial fibrillation: Code(s): I48.0 - Paroxysmal atrial fibrillation Status: Chronic Assessment and Plan: -the patient is on aspirin Id-the patient is on Coreg (6) COPD (chronic obstructive pulmonary disease): Qualifiers: COPD type: unspecified COPD Qualified Code(s): J44.9 - Chronic obstructive pulmonary disease, unspecified Code(s): J44.9 - Chronic obstructive pulmonary disease, unspecified Status: Acute Assessment and Plan: -p.r.n. albuterol -continue with Advair (7) Chronic hypertension: Code(s): I10 - Essential (primary) hypertension Status: Acute Assessment and Plan: -patient's blood pressure is elevated tonight 189/93. -continue with nifedipine but hold lisinopril due to the acute on chronic renal failure -p.r.n. hydralazine. -continue with clonidine -continue with Coreg (8) TERESITA (generalized anxiety disorder): Code(s): F41.1 - Generalized anxiety disorder Status: Acute Assessment and Plan: -continue with Lexapro (9) Acquired hypothyroidism: Code(s): E03.9 - Hypothyroidism, unspecified Status: Chronic
[2022-07-20 08:16] LABS: Thyroid Stimulating Hormone Reflex 0.528 uIU/mL (0.465-4.68)
--- NOTE | 2022-07-20 09:50 | PCOTNOTE ---
Therapist attempted evaluation with patient who was agreeable; however, evaluation was not able to be completed due to discharge papers being presented and patient wanting to be discharged at this time.
--- NOTE | 2022-08-07 20:35 | PM.DS ---
DS: Admitting Diagnosis Discharge Date 07/20/22 Admitting Diagnosis slurred speech s/p fall DS: Discharge Diagnosis Discharge Diagnosis (1) TIA (transient ischemic attack): Code(s): G45.9 - Transient cerebral ischemic attack, unspecified Status: Acute Assessment and Plan: -the CT was showing some old CVAs. -continue with his home dose of Plavix and aspirin. -neurology has been consulted. -MRI has been ordered. -the patient is already on atorvastatin. -carotid Dopplers from 10/01/2021 were read as the following 1. 50-69% stenosis in the right internal carotid artery by sonographic criteria. 2. 50-69% stenosis in the left internal carotid artery by sonographic criteria. I did repeat his carotid Dopplers for tomorrow. -the patient also had an echo on 10/02/2021 1. Complete two-dimensional, color flow and Doppler transthoracic echocardiogram is performed. ? 2. Left ventricular chamber dimension is normal. ? 3. There is mild concentric increased left ventricular wall thickness. ? 4. Left ventricular systolic function is normal, estimated at 55-60%. ? 5. Left atrial chamber dimension is mildly enlarged. ? 6. No significant valve abnormalities. I did repeat his echo Patient is back to his baseline so there is no need for swallow study. However the patient stated he is weak all over so do a PT and OT evaluation.. -the patient may have had symptoms just because his blood sugar was low at that time. The patient is not diabetic and is not on any insulin. Will continue to check his blood sugars with hypoglycemic protocol. (2) Cancer of liver: Code(s): C22.9 - Malignant neoplasm of liver, not specified as primary or secondary Status: Acute Assessment and Plan: -the patient stated that he had a biopsy and he is not sure what type of cancer it is and he has not had his 1st visit with the oncologist as of yet. I asked the patient if he wanted to see the oncologist here. However the patient stated that he is to see a oncologist at the [facility]. (3) Acute renal insufficiency: Code(s): N28.9 - Disorder of kidney and ureter, unspecified Status: Acute Assessment and Plan: -the patient's creatinine is 2.5 today last month it was 1.6 and previously was 2.5 and 2.0. The patient stated that he has seen a laydown machine operator in the past but they discontinue to monitor with lab draws. -avoid any nephrotoxic medication. -renal ultrasound -the patient has had poor oral intake is he has had a decreased appetite. The patient may be dehydrated this may be prerenal azotemia -continue with IV fluids. (4) Tobacco dependence: Code(s): F17.200 - Nicotine dependence, unspecified, uncomplicated Status: Chronic Assessment and Plan: -we spoke about smoking cessation and the benefits for approximately 5 minutes. The patient is agreeable to nicotine patch. (5) Paroxysmal atrial fibrillation: Code(s): I48.0 - Paroxysmal atrial fibrillation Status: Chronic Assessment and Plan: -the patient is on aspirin Id-the patient is on Coreg (6) COPD (chronic obstructive pulmonary disease): Qualifiers: COPD type: unspecified COPD Qualified Code(s): J44.9 - Chronic obstructive pulmonary disease, unspecified Code(s): J44.9 - Chronic obstructive pulmonary disease, unspecified Status: Acute Assessment and Plan: -p.r.n. albuterol -continue with Advair (7) Chronic hypertension: Code(s): I10 - Essential (primary) hypertension Status: Acute Assessment and Plan: -patient's blood pressure is elevated tonight 189/93. -continue with nifedipine but hold lisinopril due to the acute on chronic renal failure -p.r.n. hydralazine. -continue with clonidine -continue with Coreg (8) TERESITA (generalized anxiety disorder): Code(s): F41.1 - Generalized anxiety disorder Status: Acute Assessment and Plan: -continue with Lexapro (
== END 2022-07-20 11:16 | disposition left against medical advice (07) ==
LOC: ANHED 15:38 → ANH3MEDSUR 17:32
PROVIDERS: Emergency Medicine; Nurse Practitioner; Admitting Provider Student in an Organized Health Care Education/Training Program; Emergency Provider Emergency Medicine; PCP Family Medicine; Visit Provider Student in an Organized Health Care Education/Training Program
DX: G45.9 Transient cerebral ischemic attack, unspecified (principal); C22.9 Malignant neoplasm of liver, not specified as primary or secondary; S09.90XA Unspecified injury of head, initial encounter; W18.30XA Fall on same level, unspecified, initial encounter; I12.9 Hypertensive chronic kidney disease with stage 1 through stage 4 chronic kidney disease, or unspecified chronic kidney disease; N18.4 Chronic kidney disease, stage 4 (severe); I48.0 Paroxysmal atrial fibrillation; M47.812 Spondylosis without myelopathy or radiculopathy, cervical region; F41.9 Anxiety disorder, unspecified; J44.9 Chronic obstructive pulmonary disease, unspecified; F32.A Depression, unspecified; F43.10 Post-traumatic stress disorder, unspecified; Z20.822 Contact with and (suspected) exposure to COVID-19; R63.0 Anorexia; Z68.21 Body mass index [BMI] 21.0-21.9, adult; R29.701 NIHSS score 1; K21.9 Gastro-esophageal reflux disease without esophagitis; F17.210 Nicotine dependence, cigarettes, uncomplicated; Z86.19 Personal history of other infectious and parasitic diseases; E78.5 Hyperlipidemia, unspecified; E03.9 Hypothyroidism, unspecified; G62.9 Polyneuropathy, unspecified; G47.33 Obstructive sleep apnea (adult) (pediatric); Z86.73 Personal history of transient ischemic attack (TIA), and cerebral infarction without residual deficits; Z79.02 Long term (current) use of antithrombotics/antiplatelets; Z79.51 Long term (current) use of inhaled steroids; Z79.891 Long term (current) use of opiate analgesic; Z79.899 Other long term (current) drug therapy; Z82.49 Family history of ischemic heart disease and other diseases of the circulatory system
CPT/HCPCS: 36415; 70450; 71045; 80053; 81001; 82140; 82948; 83036; 83605; 83690; 83735; 84443; 84484; 85025; 85610; 85730; 93005; 93306; 96361; 96374; 99285; A9270; G0378; J2405; J7030; U0003; U0005